=== PATIENT | female | born 1955 | race Caucasian/White ===

== ENCOUNTER 2018-05-25 17:27 | Inpatient (IN) | payer MEDICARE, MEDICAID ==
[2018-05-25] MEDS ORDERED: Sodium Chloride 0.9% 1,000 ML IV ONE (17:35)
[2018-05-25] MEDS ORDERED: Haloperidol Lactate 5 mg/mL 1mL Vial ONE (17:55)
[2018-05-25 17:59] LABS: % BASOPHILS 0.1 % (0.0-2.0); % EOSINOPHILS 0.3 % (0.0-5.0); % LYMPHOCYTES 13.8 % (20.0-50.0); % MONOCYTES 11.4 % (2.0-10.0); % NEUTROPHILS 74.4 % (40.0-80.0); HEMATOCRIT 41.1 % (41.0-60); HEMOGLOBIN 13.6 gm/dL (12-16); LYMPHOCYTE ABSOLUTE 1.2 Th/cmm (1.5-3.0); MEAN CELL VOLUME 88.1 fl (81-100); MEAN CORPUSCULAR HEMOGLOBIN 29.1 pg (27.0-31.0); MEAN CORPUSCULAR HGB CONC 33.1 pg (28.0-36.0); MEAN PLATELET VOLUME 8.2 fl; NEUTROPHILE ABSOLUTE 6.4 Th/cmm (1.8-8.0); PLATELET COUNT 230 Th/cmm (150-400); RED BLOOD COUNT 4.66 Mil/cmm (3.80-5.10); RED CELL DISTRIBUTION WIDTH 12.9 % (11.5-20.0); WHITE BLOOD COUNT 8.6 Th/cmm (4.8-10.8)
[2018-05-25 18:08] LABS: INR 0.98 (0.5-1.4); PROTHROMBIN TIME (TEST) 10.2 SECONDS (9.5-11.5)
[2018-05-25 18:12] LABS: ALB/GLOB RATIO 1.2 (1.0-1.8); ALBUMIN 4.2 gm/dL (3.7-5.3); ALKALINE PHOSPHATASE 122 U/L (34-104); AMYLASE SERUM 26 U/L (29-103); ANION GAP 12.9 (7.0-16.0); BILIRUBIN,TOTAL 0.4 mg/dL (0.3-1.0); BUN - UREA NITROGEN 17 mg/dL (7-25); CALCIUM SERUM 9.6 mg/dL (8.6-10.3); CHLORIDE 100 mEq/L (98-107); CREATININE - SERUM 0.9 mg/dL (0.6-1.2); CREATININE KINASE 52 U/L (30-223); GFR AFRICAN-AMERICAN > 60.0 ml/min (>90); GFR NON AFRICAN-AMERICAN > 60.0 ml/min; GLUCOSE 123 mg/dL (70-105); LIPASE 147 U/L (11-82); POTASSIUM SERUM 3.9 mEq/L (3.5-5.1); SGOT 20 U/L (13-39); SGPT/ALT 9 U/L (7-52); SODIUM SERUM 135 mEq/L (136-145); TOTAL PROTEIN,SERUM 7.8 gm/dL (6.0-8.3)
[2018-05-25 18:13] LABS: TROP I 0.02 ng/mL (0.01-0.05)
[2018-05-25 18:24] LABS: URINE SOURCE MIDSTREAM
[2018-05-25 18:25] LABS: URINE BILIRUBIN NEGATIVE (NEGATIVE); URINE BLOOD NEGATIVE (NEGATIVE); URINE GLUCOSE (UA) NEGATIVE (NEGATIVE); URINE KETONE NEGATIVE (NEGATIVE); URINE LEUKOCYTE ESTERASE NEGATIVE (NEGATIVE); URINE NITRATE NEGATIVE (NEGATIVE); URINE PROTEIN NEGATIVE (NEGATIVE); URINE UROBILINOGEN 0.2 E.U./dL (0.2 - 1.0)
--- NOTE | 2018-05-25 18:38 | ED Physician Chart ---
ED Chief Complaint/HPI - Patient Information Allergies:: Allergies Allergy/AdvReac Type Severity Reaction Status Date / Time No Known Allergies Allergy Verified 05/25/18 17:31 Vitals:: Vital Signs - 8 hr 05/25/18 17:32 Temp 101.7 F HR 80 RR 16 BP 140/76 O2 Sat % 100 ED Labs/Radiology/EKG Results - Lab Results Results: Laboratory Tests 05/25/18 05/25/18 05/25/18 17:45 17:45 17:45 WBC 8.6 RBC 4.66 Hgb 13.6 Hct 41.1 MCV 88.1 MCH 29.1 MCHC Differential 33.1 RDW 12.9 Plt Count 230 MPV 8.2 Neutrophils % 74.4 Lymphocytes % 13.8 L Monocytes % 11.4 H Eosinophils % 0.3 Basophils % 0.1 Sodium 135 L Potassium 3.9 Chloride 100 Carbon Dioxide 26.0 Anion Gap 12.9 BUN 17 Creatinine 0.9 Est GFR ( Amer) > 60.0 Est GFR (Non-Af Amer) > 60.0 BUN/Creatinine Ratio 18.9 Glucose 123 H Whole Bld Lactic Acid 0.99 Calcium 9.6 Total Bilirubin 0.4 AST 20 ALT 9 Alkaline Phosphatase 122 H Creatine Kinase 52 Total Protein 7.8 Albumin 4.2 Globulin 3.6 Albumin/Globulin Ratio 1.2 Amylase 26 L Lipase 147 H - EKG Interpretations EKG Time:: 17:45 Rate & Rhythm: 82; NSR Comments:: LVH; non-specific st-t changes ED Septic Shock - <6hrs of presentation: Vital Signs: Vital Signs - 8 hr 05/25/18 17:32 Temp 101.7 F HR 80 RR 16 BP 140/76 O2 Sat % 100
[2018-05-25 18:40] LABS: URINE CLARITY CLEAR (CLEAR); URINE COLOR YELLOW; URINE MICROSCOPIC INDICATED? YES
[2018-05-25 18:43] LABS: URINE BACTERIA FEW /hpf (NONE SEEN); URINE EPITHELIAL CELLS FEW /lpf (FEW); URINE RBC 0-2 /hpf (0-5)
[2018-05-25] MEDS ORDERED: cefTRIAXone 1 GM in Sodium Chloride 0.9% 50 ML IV ONE (19:11)
[2018-05-25] MEDS ORDERED: Acetaminophen 500 MG TAB ONE (19:24)
[2018-05-26] MEDS: D5-0.45NS 1,000 ML IV SCH (00:38)
[2018-05-26] MEDS ORDERED: Levofloxacin 500mg/100mL 500 MG/100 ML BAG IV ONE (00:45)
[2018-05-26 06:46] LABS: % BASOPHILS 0.2 % (0.0-2.0); % EOSINOPHILS 0.4 % (0.0-5.0); % LYMPHOCYTES 20.2 % (20.0-50.0); % MONOCYTES 14.7 % (2.0-10.0); % NEUTROPHILS 64.5 % (40.0-80.0); HEMATOCRIT 36.9 % (41.0-60); HEMOGLOBIN 12.4 gm/dL (12-16); LYMPHOCYTE ABSOLUTE 1.3 Th/cmm (1.5-3.0); MEAN CELL VOLUME 87.8 fl (81-100); MEAN CORPUSCULAR HEMOGLOBIN 29.6 pg (27.0-31.0); MEAN CORPUSCULAR HGB CONC 33.7 pg (28.0-36.0); MEAN PLATELET VOLUME 8.2 fl; NEUTROPHILE ABSOLUTE 4.2 Th/cmm (1.8-8.0); PLATELET COUNT 204 Th/cmm (150-400); RED CELL DISTRIBUTION WIDTH 13.3 % (11.5-20.0)
[2018-05-26 06:52] LABS: WHITE BLOOD COUNT 6.5 Th/cmm (4.8-10.8)
[2018-05-26 07:01] LABS: ALB/GLOB RATIO 1.3 (1.0-1.8); ALBUMIN 3.5 gm/dL (3.7-5.3); ALKALINE PHOSPHATASE 93 U/L (34-104); ANION GAP 10.8 (7.0-16.0); BILIRUBIN,TOTAL 0.3 mg/dL (0.3-1.0); BUN - UREA NITROGEN 15 mg/dL (7-25); CARBON DIOXIDE 27.1 mEq/L (21.0-31.0); CHLORIDE 106 mEq/L (98-107); CHOLESTEROL 145 mg/dL (<200); CREATININE - SERUM 0.8 mg/dL (0.6-1.2); GFR AFRICAN-AMERICAN > 60.0 ml/min (>90); GFR NON AFRICAN-AMERICAN > 60.0 ml/min; GLUCOSE 88 mg/dL (70-105); HDL -HIGH DENSITY LIPOPROTEIN 48 mg/dL (23-92); POTASSIUM SERUM 3.9 mEq/L (3.5-5.1); SGOT 19 U/L (13-39); SGPT/ALT 17 U/L (7-52); SODIUM SERUM 140 mEq/L (136-145); TOTAL PROTEIN,SERUM 6.3 gm/dL (6.0-8.3); TRIGLYCERIDES 69 mg/dL (<150)
--- NOTE | 2018-05-26 08:33 | Diagnostic Imaging Report ---
Portable chest x-ray HISTORY: Pain There is a very poor inspiration. Heart size difficult to assess with portable technique and the poor inspiration. No focal pulmonary processes. No hilar or mediastinal abnormalities. Degenerative changes noted about the right shoulder along with evidence of calcific tendinitis. IMPRESSION: 1. Poor inspiration 2. No acute focal pulmonary processes
--- NOTE | 2018-05-26 11:40 | ER Physician Documentation ---
DATE OF SERVICE: 05/25/2018 HISTORY OF PRESENT ILLNESS: This is a 62-year-old patient brought in by [facility] because of poor oral intake, failure to thrive for the past 3 days. PAST MEDICAL HISTORY: Per nurses' notes. MEDICATIONS: Per nurse's notes. ALLERGIES: Per nurse's notes. REVIEW OF SYSTEMS: Otherwise noncontributory. PHYSICAL EXAMINATION: GENERAL: The patient is in no acute distress, is alert and active. VITAL SIGNS: Afebrile. Vital signs are stable. HEENT: Unremarkable. NECK: Supple, no meningeal signs. CARDIOVASCULAR: Regular rate and rhythm. LUNGS: Clear. ABDOMEN: Soft, nontender, normoactive bowel sounds. No pulsatile masses. EXTREMITIES: No edema, clubbing or cyanosis. NEUROLOGIC: Showed No focal signs. SKIN: Shows poor turgor with dry mucous membranes. EMERGENCY DEPARTMENT COURSE: The patient received IV fluids and labs revealed low sodium of 135. The urinalysis showed some white cells and bacteria. HOSPITAL COURSE: The patient received Rocephin and it was decided the patient should be admitted. The patient has been admitted. DIAGNOSES: Dehydration, poor oral intake, failure to thrive, urinary tract infection, sepsis. She was admitted under Dr. Saunders. JOB# [id number]
[2018-05-26 17:42] LABS: INF A SCREEN NEG FOR INF A; INF B SCREEN NEG FOR INF B
[2018-05-26 19:54] VITALS: BP 123/71
--- NOTE | 2018-05-26 22:20 | Consultation ---
DATE OF CONSULTATION: 05/26/2018 REQUESTING PHYSICIAN: Dr. Saunders. REASON FOR CONSULTATION: Failure to thrive and poor oral intake. Thank you for asking me to see this patient in consultation. HISTORY OF PRESENT ILLNESS: This is a 62-year-old female with mental retardation per nursing report, who presents to the hospital with fevers and poor oral intake. Information is lacking based on the patient's history as well as lack of any chart review available. The patient was apparently not eating very well from the past few days and also was having a fever as high as 100. She was started on antibiotics and she has been here in the hospital. She had a normal urinalysis, but does not confirm. She does not complain of any dysphagia or any vomiting and no blood in her stool. Currently, the patient is eating comfortably with nursing assistance. PAST MEDICAL HISTORY: Per nursing report. MEDICATIONS: Have been reviewed. SOCIAL HISTORY: Denies any tobacco, alcohol, or drugs. REVIEW OF SYSTEMS: Positive for headaches. All other 12-point systems are negative. PHYSICAL EXAMINATION: VITAL SIGNS: Temperature of 101.4, pulse of 86, blood pressure 132/54, respiratory rate of 20, and satting 94% on room air. GENERAL: She is in no acute distress. HEENT: Normocephalic, atraumatic. PERRL positive. LUNGS: Clear bilaterally. No wheezes, rales, or rhonchi. HEART: Regular rate and rhythm, normal S1, S2. ABDOMEN: Soft, nontender, bowel sounds are positive. EXTREMITIES: Show no lower extremity edema. PSYCHOLOGICAL: Alert and oriented x3. NEUROLOGIC: Grossly intact. LABORATORY DATA: Hemoglobin of 13.6 and platelet count of 230,000. INR 0.98. Sodium was 135 and potassium is 3.9. Amylase 26 and lipase of 147. ASSESSMENT AND PLAN: This is a 62-year-old female with history of mental retardation, who presents with fevers and poor p.o. intake and failure to thrive. 1. Poor p.o. intake. 2. Failure to thrive. 3. Systemic inflammatory response syndrome SIRS. 4. Generalized weakness. I would recommend a full sepsis workup in this patient with blood cultures, urine cultures, and look for underlying source of her fever, thus far only imaging that she has had is a chest x-ray, which showed no acute pulmonary process. PLAN: 1. Recommend calorie count. 2. Monitor for any oropharyngeal dysphagia. 3. We will consider PEG tube placement if the patient is having any difficulties in swallow or does not meet her caloric needs after underlying acute diagnosis has been treated. Thank you for allowing me to participate in this patient's care. Further recommendations to follow. JOB# [id number]
--- NOTE | 2018-05-26 22:34 | History & Physical ---
ADMIT DATE: 05/26/2018 CHIEF COMPLAINT: Poor oral intake. HISTORY OF PRESENT ILLNESS: This is a 62-year-old female who is a board and care resident, admitted to the Med-Surg unit due to 3-day history of poor oral intake. No reports of any fevers at the long term. For further management, the patient is now admitted. PAST MEDICAL HISTORY: MR and dementia. SURGICAL HISTORY: Unknown. ALLERGIES: No known drug allergies. HOME MEDICATIONS: Please see medication list. SOCIAL HISTORY: The patient is a board and care resident. REVIEW OF SYSTEMS: GENERAL: Denies any fevers or chills. CARDIOVASCULAR: Denies chest pain. RESPIRATORY: Denies shortness of breath. GASTROINTESTINAL: Denies nausea, vomiting, abdominal pain. GENITOURINARY: Denies increased frequency. NEUROLOGIC: Denies headache, seizure or syncope. All systems are reviewed and negative. PHYSICAL EXAMINATION: GENERAL: The patient is well developed, well nourished, no apparent distress. VITAL SIGNS: Temperature 101.4, heart rate 86, blood pressure 132/54, respirations 19, O2 93%. HEENT: Head; normocephalic, atraumatic. NECK: Supple. No mass. LUNGS: Clear bilaterally. ABDOMEN: Soft, nontender. LABORATORY DATA: WBC 6.5, H and H 12.4 and 36.9, platelet of 204. Sodium ____, potassium 3.9, chloride 106, BUN 15, creatinine 0.8. The patient was swabbed for Influenza A and B negative. ASSESSMENT: Acute febrile illness, poor oral intake, failure to thrive, acute dehydration, mild mitral regurgitation, ____. PLAN: The patient to be admitted to the Med/Surg unit. We will give the patient, empiric IV antibiotics, Levaquin 250 mg IV q.24. Monitor the patient. We will do a calorie count. We will get Infectious Disease on the case as well as GI. We will await for the patient's blood culture results. We will also get a chest x-ray. We will continue to monitor this patient. JOB# [id number]
[2018-05-27] MEDS: Levofloxacin 250mg/50mL 250 MG/50 ML BAG IV SCH (00:34)
[2018-05-27 06:30] LABS: % BASOPHILS 0.1 % (0.0-2.0); % EOSINOPHILS 0.6 % (0.0-5.0); % MONOCYTES 13.3 % (2.0-10.0); HEMATOCRIT 36.6 % (41.0-60); HEMOGLOBIN 12.2 gm/dL (12-16); LYMPHOCYTE ABSOLUTE 1.2 Th/cmm (1.5-3.0); MEAN CELL VOLUME 86.9 fl (81-100); MEAN CORPUSCULAR HGB CONC 33.4 pg (28.0-36.0); MONOCYTE ABSOLUTE 0.7 Th/cmm (0.3-1.0); NEUTROPHILE ABSOLUTE 3.5 Th/cmm (1.8-8.0); PLATELET COUNT 216 Th/cmm (150-400); RED BLOOD COUNT 4.21 Mil/cmm (3.80-5.10); RED CELL DISTRIBUTION WIDTH 12.8 % (11.5-20.0); WHITE BLOOD COUNT 5.4 Th/cmm (4.8-10.8)
[2018-05-27 06:43] LABS: BUN - UREA NITROGEN 13 mg/dL (7-25); CARBON DIOXIDE 25.7 mEq/L (21.0-31.0); CHLORIDE 105 mEq/L (98-107); CREATININE - SERUM 0.6 mg/dL (0.6-1.2); GFR AFRICAN-AMERICAN > 60.0 ml/min (>90); GFR NON AFRICAN-AMERICAN > 60.0 ml/min; GLUCOSE 95 mg/dL (70-105); POTASSIUM SERUM 3.7 mEq/L (3.5-5.1); SODIUM SERUM 140 mEq/L (136-145)
--- NOTE | 2018-05-27 07:51 | GI Progress Note ---
Subjective - Review of Systems Subjective: DENIES ABD PAIN EATING 100% OF HER FOOD PER PT AND STAFF Objective - Results Result Diagrams: 05/27/18 05:05 05/27/18 05:05 Recent Labs: Laboratory Last Values WBC 5.4 Th/cmm (4.8-10.8) 05/27/18 05:05 RBC 4.21 Mil/cmm (3.80-5.10) 05/27/18 05:05 Hgb 12.2 gm/dL (12-16) 05/27/18 05:05 Hct 36.6 % (41.0-60) L 05/27/18 05:05 MCV 86.9 fl (81-100) 05/27/18 05:05 MCH 29.0 pg (27.0-31.0) 05/27/18 05:05 MCHC Differential 33.4 pg (28.0-36.0) 05/27/18 05:05 RDW 12.8 % (11.5-20.0) 05/27/18 05:05 Plt Count 216 Th/cmm (150-400) 05/27/18 05:05 MPV 8.0 fl 05/27/18 05:05 Neutrophils % 63.0 % (40.0-80.0) 05/27/18 05:05 Lymphocytes % 23.0 % (20.0-50.0) 05/27/18 05:05 Monocytes % 13.3 % (2.0-10.0) H 05/27/18 05:05 Eosinophils % 0.6 % (0.0-5.0) 05/27/18 05:05 Basophils % 0.1 % (0.0-2.0) 05/27/18 05:05 PT 10.2 SECONDS (9.5-11.5) 05/25/18 17:45 INR 0.98 (0.5-1.4) 05/25/18 17:45 PTT (Actin FS) 26.8 SECONDS (26.0-38.0) 05/25/18 17:45 Sodium 140 mEq/L (136-145) 05/27/18 05:05 Potassium 3.7 mEq/L (3.5-5.1) 05/27/18 05:05 Chloride 105 mEq/L (98-107) 05/27/18 05:05 Carbon Dioxide 25.7 mEq/L (21.0-31.0) 05/27/18 05:05 Anion Gap 13.0 (7.0-16.0) 05/27/18 05:05 BUN 13 mg/dL (7-25) 05/27/18 05:05 Creatinine 0.6 mg/dL (0.6-1.2) 05/27/18 05:05 Est GFR ( Amer) > 60.0 ml/min (>90) 05/27/18 05:05 Est GFR (Non-Af Amer) > 60.0 ml/min 05/27/18 05:05 BUN/Creatinine Ratio 21.7 05/27/18 05:05 Glucose 95 mg/dL (70-105) 05/27/18 05:05 Whole Bld Lactic Acid 0.99 mmol/L (0.60-1.99) 05/25/18 17:45 Calcium 9.0 mg/dL (8.6-10.3) 05/27/18 05:05 Total Bilirubin 0.3 mg/dL (0.3-1.0) 05/26/18 06:00 AST 19 U/L (13-39) 05/26/18 06:00 ALT 17 U/L (7-52) 05/26/18 06:00 Alkaline Phosphatase 93 U/L (34-104) 05/26/18 06:00 Creatine Kinase 52 U/L (30-223) 05/25/18 17:45 Troponin I 0.02 ng/mL (0.01-0.05) 05/25/18 17:45 Total Protein 6.3 gm/dL (6.0-8.3) 05/26/18 06:00 Albumin 3.5 gm/dL (3.7-5.3) L 05/26/18 06:00 Globulin 2.8 gm/dL 05/26/18 06:00 Albumin/Globulin Ratio 1.3 (1.0-1.8) 05/26/18 06:00 Triglycerides 69 mg/dL (<150) 05/26/18 06:00 Cholesterol 145 mg/dL (<200) 05/26/18 06:00 LDL Cholesterol Direct 79 mg/dL (75-193) 05/26/18 06:00 HDL Cholesterol 48 mg/dL (23-92) 05/26/18 06:00 Amylase 26 U/L (29-103) L 05/25/18 17:45 Lipase 147 U/L (11-82) H 05/25/18 17:45 Urine Source MIDSTREAM 05/25/18 18:10 Urine Color YELLOW 05/25/18 18:10 Urine Clarity CLEAR (CLEAR) 05/25/18 18:10 Urine pH 6.0 (4.6 - 8.0) 05/25/18 18:10 Ur Specific [place] 1.020 (1.005-1.030) 05/25/18 18:10 Urine Protein NEGATIVE mg/dL (NEGATIVE) 05/25/18 18:10 Urine Glucose (UA) NEGATIVE mg/dL (NEGATIVE) 05/25/18 18:10 Urine Ketones NEGATIVE mg/dL (NEGATIVE) 05/25/18 18:10 Urine Blood NEGATIVE (NEGATIVE) 05/25/18 18:10 Urine Nitrate NEGATIVE (NEGATIVE) 05/25/18 18:10 Urine Bilirubin NEGATIVE (NEGATIVE) 05/25/18 18:10 Urine Urobilinogen 0.2 E.U./dL (0.2 - 1.0) 05/25/18 18:10 Ur Leukocyte Esterase NEGATIVE (NEGATIVE) 05/25/18 18:10 Urine RBC 0-2 /hpf (0-5) 05/25/18 18:10 Urine WBC 2-5 /hpf (0-5) 05/25/18 18:10 Ur Epithelial Cells FEW /lpf (FEW) 05/25/18 18:10 Urine Bacteria FEW /hpf (NONE SEEN) 05/25/18 18:10 Urine Mucus FEW /lpf (FEW) 05/25/18 18:10 Influenza A (Rapid) NEG FOR INF A 05/26/18 16:45 Influenza B (Rapid) NEG FOR INF B 05/26/18 16:45 - Physical Exam Vitals and I&O: Vital Signs Temp 97.0 F 05/27/18 07:47 Pulse 73 05/27/18 07:47 Resp 18 05/27/18 07:47 BP 129/64 05/27/18 07:47 Pulse Ox 98 05/27/18 07:47 Intake & Output 05/26/18 05/27/18 05/27/18 18:59 06:59 18:59 Intake Total 720 Balance 720 Weight (lbs) 58.967 kg 58.967 kg Intake: Oral 720 Other: # Voids 3 3 # Bowel Movements 0 Weight Source Bedscale Bedscale Active Medications: Current Medications Acetaminophen (Tylenol) 650 mg PO Q4HR PRN PRN Reason: Pain Or Fever above 101 Stop: 07/25/18 17:45 Aripiprazole (Abilify) 2.5 mg PO HS [facility]; Protocol Stop: 07/25/18 20:59 Last Admin: 05/26/18 20:38 Dose: 2.5 mg Benztropine Mesylate (Cogentin) 0.5 mg PO BID [facility] Stop: 07/26/18 08:59 Dextromethorphan/Quinidine (Nuedexta 20mg-10mg) 1 cap PO DAILY [facility] Stop: 07/26/18 08:59 Donepezil HCl (Aricept) 10 mg PO HS [facility] Stop: 07/26/18 20:59 Levofloxacin (Levaquin Pb) 250 mg in 50 mls @ 50 mls/hr IV Q24HR [facility]; Protocol Stop: 07/26/18 00:59 Last Admin: 05/27/18 00:34 Dose: 50 mls/hr Dextrose/Sodium Chloride (D5-0.45ns) 1,000 mls @ 75 mls/hr IV .[id number] [facility] Stop: 07/25/18 00:28 Last Admin: 05/26/18 00:38 Dose: 75 mls/hr Lorazepam (Ativan) 1 mg PO BID PRN; Protocol PRN Reason: Anxiety Stop: 07/25/18 17:44 Miscellaneous (Buspirone Hcl [Buspirone Hcl*]) 2 tab PO BID [facility] Stop: 07/26/18 08:59 Miscellaneous (Memantine Hcl [Memantine Hcl Er]) 28 mg PO DAILY [facility] Stop: 07/26/18 08:59 Miscellaneous (Sertraline Hcl [Zoloft]) 2 tab PO HS [facility] Stop: 07/25/18 20:59 - Procedures Procedures: Procedures Procedure Code Date APPLICATION LOWER LEG SPLINT 40360 01/16/05 APPLICATION OF SPLINT 93.54 01/16/05 EEG MONITORING/GIVING DRUGS 15084 01/02/98 ELECTROENCEPHALOGRAM 89.14 01/02/98 Assessment/Plan - Assessment Assessment: 62 YO FEMALE WITH FAILURE TO THRIVE SEEMS TO HAVE RESOLVED EATING 100% MEAL NO CLEAR NEED AT THIS TIME FOR PEG AND PT DECLINE 1.CONT CALORIE COUNT; IF LOW THEN AND PT NEEDS IT THEN CONSIDER PEG IN THE FUTURE 2.CONT SUPP CARE 3.DEFER OTHER MANAGEMENT ISSUES TO THE PRIMARY TEAM 4.WILL SEE NEEDED; CALL IF QUESTIONS
--- NOTE | 2018-05-27 08:32 | Diagnostic Imaging Report ---
Portable chest x-ray HISTORY: Fever Heart size difficult to assess with portable technique and a poor inspiration. No acute focal pulmonary processes. No hilar or mediastinal abnormalities. IMPRESSION: No acute abnormalities
[2018-05-27] MEDS: Dextromethorphan/Quinidine 20mg/10mg Cap PO SCH (09:09)
[2018-05-27] MEDS ORDERED: Vancomycin HCl 1.5 GM in Sodium Chloride 0.9% 500 ML IV ONE (13:15)
[2018-05-27] MEDS ORDERED: Probiotic Screen MC PRN (14:28)
--- NOTE | 2018-05-27 16:18 | Consultation ---
DATE OF CONSULTATION: 05/27/2018 INFECTIOUS DISEASE CONSULTATION REFERRING PHYSICIAN: Dr. Saunders. REASON FOR CONSULTATION: Bacteremia, sepsis. HISTORY OF PRESENT ILLNESS: The patient is a 62-year-old female with a past medical history of mental retardation, dementia, brought in from nursing facility for poor intake for last 3 days. There is no history of fever at nursing facility. On initial evaluation, the patient's temperature was 101.7 degrees Fahrenheit and WBC count was 8600. She had a tachycardia at one point of time in the ER, heart rate going up to 114 and sepsis workup was performed and blood culture one of the two sets grew gram-positive cocci. Vancomycin IV was started. Meanwhile, the patient was also diagnosed to have pneumonia. She was started on Levaquin. Blood culture grew gram-positive cocci in clusters in one of the two sets and vancomycin was started today. ID consult was called for further antibiotic management. PAST MEDICAL HISTORY: Includes mental retardation and dementia. Psychosis and aggressive behavior. PAST SURGICAL HISTORY: None known. ALLERGIES: NKDA. MEDICATIONS: As per medication reconciliation sheet. ANTIBIOTIC BEAR: The patient is on vancomycin and Levaquin. REVIEW OF SYSTEMS: GENERAL: The patient denies any fever or chills. HEENT: No diplopia, no photophobia, no sore throat. RESPIRATORY: No cough, no shortness of breath. CVS: No chest pain. No palpitation. GASTROINTESTINAL: No nausea, no vomiting, no diarrhea, no constipation. GENITOURINARY: No dysuria. NEUROLOGICAL: No headache, no dizziness, no focal weakness. IMMUNIZATION STATUS: Up-to-date. TRAVEL HISTORY: None. EXPOSURES TO ILL CONTACTS: None. LABORATORY DATA: WBC count is 5400, hemoglobin 12.2, hematocrit 33.6, platelets are 216,000, neutrophils 63%. INR is 0.98, sodium is 140, potassium 3.7, chloride 105, bicarbonate is 26, BUN is 13, creatinine 0.6, glucose is 95. Urinalysis negative, nitrite negative, leukoesterase. Influenza A and B screen is negative. Chest x-ray shows no active disease. Blood culture 1 of 2 sets growing gram-positive cocci in clusters. MRSA screen is negative. IMPRESSION: 1. Staph bacteremia or sepsis. The patient had a fever, resolved. 2. Suspect pneumonia. 3. Dementia. 4. Mental retardation. 5. Psychosis and aggressive behavior. RECOMMENDATIONS: We will continue vancomycin and Levaquin. Depending on the blood culture report, we will define further therapy. Thank you, Dr. Saunders for involving me in taking care of this patient. JOB# [id number]
--- NOTE | 2018-05-27 19:28 | Internal Medicine Prog Note ---
Internal Medicine Subjective - Subjective Service Date: 05/27/18 Patient seen and examined:: with staff, chart reviewed Patient is:: awake, verbal, talking, agitated, confused Patient Complaints of:: congestion, cough, SOB Per staff patient has:: no adverse event, no episodes of fall, poor oral intake , agitated, other (Failure to thrive) Internal Medicine Objective - Results Result Diagrams: 05/27/18 05:05 05/27/18 05:05 Recent Labs: Laboratory Last Values WBC 5.4 Th/cmm (4.8-10.8) 05/27/18 05:05 RBC 4.21 Mil/cmm (3.80-5.10) 05/27/18 05:05 Hgb 12.2 gm/dL (12-16) 05/27/18 05:05 Hct 36.6 % (41.0-60) L 05/27/18 05:05 MCV 86.9 fl (81-100) 05/27/18 05:05 MCH 29.0 pg (27.0-31.0) 05/27/18 05:05 MCHC Differential 33.4 pg (28.0-36.0) 05/27/18 05:05 RDW 12.8 % (11.5-20.0) 05/27/18 05:05 Plt Count 216 Th/cmm (150-400) 05/27/18 05:05 MPV 8.0 fl 05/27/18 05:05 Neutrophils % 63.0 % (40.0-80.0) 05/27/18 05:05 Lymphocytes % 23.0 % (20.0-50.0) 05/27/18 05:05 Monocytes % 13.3 % (2.0-10.0) H 05/27/18 05:05 Eosinophils % 0.6 % (0.0-5.0) 05/27/18 05:05 Basophils % 0.1 % (0.0-2.0) 05/27/18 05:05 PT 10.2 SECONDS (9.5-11.5) 05/25/18 17:45 INR 0.98 (0.5-1.4) 05/25/18 17:45 PTT (Actin FS) 26.8 SECONDS (26.0-38.0) 05/25/18 17:45 Sodium 140 mEq/L (136-145) 05/27/18 05:05 Potassium 3.7 mEq/L (3.5-5.1) 05/27/18 05:05 Chloride 105 mEq/L (98-107) 05/27/18 05:05 Carbon Dioxide 25.7 mEq/L (21.0-31.0) 05/27/18 05:05 Anion Gap 13.0 (7.0-16.0) 05/27/18 05:05 BUN 13 mg/dL (7-25) 05/27/18 05:05 Creatinine 0.6 mg/dL (0.6-1.2) 05/27/18 05:05 Est GFR ( Amer) > 60.0 ml/min (>90) 05/27/18 05:05 Est GFR (Non-Af Amer) > 60.0 ml/min 05/27/18 05:05 BUN/Creatinine Ratio 21.7 05/27/18 05:05 Glucose 95 mg/dL (70-105) 05/27/18 05:05 Whole Bld Lactic Acid 0.99 mmol/L (0.60-1.99) 05/25/18 17:45 Calcium 9.0 mg/dL (8.6-10.3) 05/27/18 05:05 Total Bilirubin 0.3 mg/dL (0.3-1.0) 05/26/18 06:00 AST 19 U/L (13-39) 05/26/18 06:00 ALT 17 U/L (7-52) 05/26/18 06:00 Alkaline Phosphatase 93 U/L (34-104) 05/26/18 06:00 Creatine Kinase 52 U/L (30-223) 05/25/18 17:45 Troponin I 0.02 ng/mL (0.01-0.05) 05/25/18 17:45 Total Protein 6.3 gm/dL (6.0-8.3) 05/26/18 06:00 Albumin 3.5 gm/dL (3.7-5.3) L 05/26/18 06:00 Globulin 2.8 gm/dL 05/26/18 06:00 Albumin/Globulin Ratio 1.3 (1.0-1.8) 05/26/18 06:00 Triglycerides 69 mg/dL (<150) 05/26/18 06:00 Cholesterol 145 mg/dL (<200) 05/26/18 06:00 LDL Cholesterol Direct 79 mg/dL (75-193) 05/26/18 06:00 HDL Cholesterol 48 mg/dL (23-92) 05/26/18 06:00 Amylase 26 U/L (29-103) L 05/25/18 17:45 Lipase 147 U/L (11-82) H 05/25/18 17:45 Urine Source MIDSTREAM 05/25/18 18:10 Urine Color YELLOW 05/25/18 18:10 Urine Clarity CLEAR (CLEAR) 05/25/18 18:10 Urine pH 6.0 (4.6 - 8.0) 05/25/18 18:10 Ur Specific [place] 1.020 (1.005-1.030) 05/25/18 18:10 Urine Protein NEGATIVE mg/dL (NEGATIVE) 05/25/18 18:10 Urine Glucose (UA) NEGATIVE mg/dL (NEGATIVE) 05/25/18 18:10 Urine Ketones NEGATIVE mg/dL (NEGATIVE) 05/25/18 18:10 Urine Blood NEGATIVE (NEGATIVE) 05/25/18 18:10 Urine Nitrate NEGATIVE (NEGATIVE) 05/25/18 18:10 Urine Bilirubin NEGATIVE (NEGATIVE) 05/25/18 18:10 Urine Urobilinogen 0.2 E.U./dL (0.2 - 1.0) 05/25/18 18:10 Ur Leukocyte Esterase NEGATIVE (NEGATIVE) 05/25/18 18:10 Urine RBC 0-2 /hpf (0-5) 05/25/18 18:10 Urine WBC 2-5 /hpf (0-5) 05/25/18 18:10 Ur Epithelial Cells FEW /lpf (FEW) 05/25/18 18:10 Urine Bacteria FEW /hpf (NONE SEEN) 05/25/18 18:10 Urine Mucus FEW /lpf (FEW) 05/25/18 18:10 Influenza A (Rapid) NEG FOR INF A 05/26/18 16:45 Influenza B (Rapid) NEG FOR INF B 05/26/18 16:45 - Physical Exam Vitals and I&O: Vital Signs Temp 97.5 F 05/27/18 16:00 Pulse 74 05/27/18 16:00 Resp 18 05/27/18 16:00 BP 141/86 05/27/18 16:00 Pulse Ox 97 05/27/18 16:00 Intake & Output 05/27/18 05/27/18 05/28/18 06:59 18:59 06:59 Intake Total 1050 Output Total 4 Balance 1046 Weight (lbs) 58.967 kg 58.967 kg Intake: Oral 1050 Output: Urine 4 Other: # Voids 3 # Bowel Movements 3 Stool Characteristics Soft Formed Weight Source Bedscale Bedscale Active Medications: Current Medications Acetaminophen (Tylenol) 650 mg PO Q4HR PRN PRN Reason: Pain Or Fever above 101 Stop: 07/25/18 17:45 Aripiprazole (Abilify) 2.5 mg PO HS [facility]; Protocol Stop: 07/25/18 20:59 Last Admin: 05/26/18 20:38 Dose: 2.5 mg Benztropine Mesylate (Cogentin) 0.5 mg PO BID [facility] Stop: 07/26/18 08:59 Last Admin: 05/27/18 18:09 Dose: 0.5 mg Buspirone HCl (Buspar) 30 mg PO BID [facility] Stop: 07/26/18 08:59 Dextromethorphan/Quinidine (Nuedexta 20mg-10mg) 1 cap PO DAILY [facility] Stop: 07/26/18 08:59 Last Admin: 05/27/18 09:09 Dose: 1 cap Donepezil HCl (Aricept) 10 mg PO [facility] Stop: 07/26/18 20:59 Levofloxacin (Levaquin Pb) 250 mg in 50 mls @ 50 mls/hr IV Q24HR [facility]; Protocol Stop: 07/26/18 00:59 Last Admin: 05/27/18 00:34 Dose: 50 mls/hr Dextrose/Sodium Chloride (D5-0.45ns) 1,000 mls @ 75 mls/hr IV .[id number] [facility] Stop: 07/25/18 00:28 Last Admin: 05/26/18 00:38 Dose: 75 mls/hr Vancomycin HCl 1 gm/ Sodium (Chloride) 250 mls @ 165 mls/hr IV Q12H [facility] Stop: 07/27/18 02:59 Lactobacillus Rhamnosus (Culturelle 15b) 1 each PO DAILY [facility] Stop: 07/27/18 08:59 Lorazepam (Ativan) 1 mg PO BID PRN; Protocol PRN Reason: Anxiety Stop: 07/25/18 17:44 Memantine (Namenda) 10 mg PO BID [facility] Stop: 07/26/18 08:59 Last Admin: 05/27/18 18:09 Dose: 10 mg Miscellaneous (Vancomycin Iv Per Pharmacy) 1 ea PRN PRN PRN Reason: PROTOCOL Stop: 07/26/18 10:31 Miscellaneous (Probiotic Screen) 1 ea PRN PRN PRN Reason: PROTOCOL Stop: 07/26/18 14:27 Sertraline HCl (Zoloft) 200 mg PO HS [facility] Stop: 07/25/18 20:59 General: weak, lethargic, congested, demented, other (Hx of Mental Retardation.) HEENT: NC/AT Neck: Supple, No JVD Lungs: CTAB, rales, ronchi Cardiovascular: RRR, Normal S1 Abdomen: soft, non-tender Extremities: clear Neurological: no change, disorganized, muscle weakness - Procedures Procedures: Procedures Procedure Code Date APPLICATION LOWER LEG SPLINT 46428 01/16/05 APPLICATION OF SPLINT 93.54 01/16/05 EEG MONITORING/GIVING DRUGS 15092 01/02/98 ELECTROENCEPHALOGRAM 89.14 01/02/98 Internal Medicine Assmt/Plan - Assessment Assessment: Poor oral intake Failure to thrive Systemic Inflammatory Response Syndrome Generalized weakness Mental Retardation Dementia Pneumonia Sepsis Psychosis Aggressive behavior - Plan Plan: Continuation of care continue antibiotics and present meds as directed Monitor diet GI followup and ID followup Monitor mental health status fall precaution continue present care management Nutritional Asmnt/Malnutr-PDOC - Dietary Evaluation Malnutrition Findings (Please click <Entered> for more info): Nutritional Asmnt/Malnutrition Start: 05/26/18 15: 45 Text: Status: Complete Freq: Protocol: Document 05/26/18 15:45 LCHENG (Rec: 05/26/18 15:49 [id number] [id number]) Nutritional Asmnt/Malnutrition Patient General Information Nutritional Screening High Risk Diagnosis FTT, dehydration Pertinent Medical Hx/Surgical Hx no H&P as of now Subjective Information Pt seen lying in bed at time of visit, awake and alert. Pt stated appetite is ok, no food preference. Current Diet Order/ Nutrition Support CCHO 45g, mech soft Pertinent Medications D5-0.45ns Pertinent Labs 05/26 reviewed Nutritional Hx/Data Height 1.52 m Height (Calculated Centimeters) 152.4 Current Weight (lbs) 58.967 kg Weight (Calculated Kilograms) 59.0 Weight (Calculated Grams) 45400.0 [place] Body Weight 100 Body Mass Index (BMI) 25.4 Weight Status Overweight GI Symptoms GI Symptoms None Last BM not indicated Difficult in: None Skin Integrity/Comment: intact Estimated Nutritional Goals BEE in Kcals: Using Current wt Calories/Kcals/Kg 23-27 Kcals Calculated 6925-0678 Protein: Using Current wt Protein g/k Protein Calculated 59 Fluid: ml 1357-1593ml (1ml/kcal) Nutritional Problem No current Nutrition Prob Problem N/A Malnutrition Alert Is there a minimum of two criteria No selected? Query Text:Check all the applicable criteria. A minimum of two criteria are recommended for diagnosis of either severe or non-severe malnutrition. Malnutrition Related to Morbid Obesity Malnutrition related to morbid obesity No Intervention/Recommendation Comments 1. Continue with [facility] [address] soft diet as ordered. If PO intake low < 50%, consider adding nutrtiion supplements. 2. Monitor PO intake, wt, labs and skin integrity 3. F/U as high risk in 2-3 days Expected Outcomes/Goals Expected Outcomes/Goals 1. PO intake to meet at least 75% of nutritional needs. 2. Wt stability, skin to remain intact, labs to approach WNL.
[2018-05-27] MEDS: D5-0.45NS 1,000 ML IV SCH (19:29)
[2018-05-28] MEDS: Levofloxacin 250mg/50mL 250 MG/50 ML BAG IV SCH (00:33)
[2018-05-28] MEDS: Lactobacillus Rhamnosus GG 15 Billion CFU CAP.SPRINK PO SCH (08:22)
[2018-05-28] MEDS: Dextromethorphan/Quinidine 20mg/10mg Cap PO SCH (08:22)
--- NOTE | 2018-05-28 09:17 | Infectious Disease Prog Note ---
Infectious Disease Subjective - Review of Systems Service Date: 05/28/18 Subjective: There is no new change, no fever. Infectious Disease Objective - Results Result Diagrams: 05/27/18 05:05 05/27/18 05:05 Recent Labs: Laboratory Last Values WBC 5.4 Th/cmm (4.8-10.8) 05/27/18 05:05 RBC 4.21 Mil/cmm (3.80-5.10) 05/27/18 05:05 Hgb 12.2 gm/dL (12-16) 05/27/18 05:05 Hct 36.6 % (41.0-60) L 05/27/18 05:05 MCV 86.9 fl (81-100) 05/27/18 05:05 MCH 29.0 pg (27.0-31.0) 05/27/18 05:05 MCHC Differential 33.4 pg (28.0-36.0) 05/27/18 05:05 RDW 12.8 % (11.5-20.0) 05/27/18 05:05 Plt Count 216 Th/cmm (150-400) 05/27/18 05:05 MPV 8.0 fl 05/27/18 05:05 Neutrophils % 63.0 % (40.0-80.0) 05/27/18 05:05 Lymphocytes % 23.0 % (20.0-50.0) 05/27/18 05:05 Monocytes % 13.3 % (2.0-10.0) H 05/27/18 05:05 Eosinophils % 0.6 % (0.0-5.0) 05/27/18 05:05 Basophils % 0.1 % (0.0-2.0) 05/27/18 05:05 PT 10.2 SECONDS (9.5-11.5) 05/25/18 17:45 INR 0.98 (0.5-1.4) 05/25/18 17:45 PTT (Actin FS) 26.8 SECONDS (26.0-38.0) 05/25/18 17:45 Sodium 140 mEq/L (136-145) 05/27/18 05:05 Potassium 3.7 mEq/L (3.5-5.1) 05/27/18 05:05 Chloride 105 mEq/L (98-107) 05/27/18 05:05 Carbon Dioxide 25.7 mEq/L (21.0-31.0) 05/27/18 05:05 Anion Gap 13.0 (7.0-16.0) 05/27/18 05:05 BUN 13 mg/dL (7-25) 05/27/18 05:05 Creatinine 0.6 mg/dL (0.6-1.2) 05/27/18 05:05 Est GFR ( Amer) > 60.0 ml/min (>90) 05/27/18 05:05 Est GFR (Non-Af Amer) > 60.0 ml/min 05/27/18 05:05 BUN/Creatinine Ratio 21.7 05/27/18 05:05 Glucose 95 mg/dL (70-105) 05/27/18 05:05 Whole Bld Lactic Acid 0.99 mmol/L (0.60-1.99) 05/25/18 17:45 Calcium 9.0 mg/dL (8.6-10.3) 05/27/18 05:05 Total Bilirubin 0.3 mg/dL (0.3-1.0) 05/26/18 06:00 AST 19 U/L (13-39) 05/26/18 06:00 ALT 17 U/L (7-52) 05/26/18 06:00 Alkaline Phosphatase 93 U/L (34-104) 05/26/18 06:00 Creatine Kinase 52 U/L (30-223) 05/25/18 17:45 Troponin I 0.02 ng/mL (0.01-0.05) 05/25/18 17:45 Total Protein 6.3 gm/dL (6.0-8.3) 05/26/18 06:00 Albumin 3.5 gm/dL (3.7-5.3) L 05/26/18 06:00 Globulin 2.8 gm/dL 05/26/18 06:00 Albumin/Globulin Ratio 1.3 (1.0-1.8) 05/26/18 06:00 Triglycerides 69 mg/dL (<150) 05/26/18 06:00 Cholesterol 145 mg/dL (<200) 05/26/18 06:00 LDL Cholesterol Direct 79 mg/dL (75-193) 05/26/18 06:00 HDL Cholesterol 48 mg/dL (23-92) 05/26/18 06:00 Amylase 26 U/L (29-103) L 05/25/18 17:45 Lipase 147 U/L (11-82) H 05/25/18 17:45 Urine Source MIDSTREAM 05/25/18 18:10 Urine Color YELLOW 05/25/18 18:10 Urine Clarity CLEAR (CLEAR) 05/25/18 18:10 Urine pH 6.0 (4.6 - 8.0) 05/25/18 18:10 Ur Specific [place] 1.020 (1.005-1.030) 05/25/18 18:10 Urine Protein NEGATIVE mg/dL (NEGATIVE) 05/25/18 18:10 Urine Glucose (UA) NEGATIVE mg/dL (NEGATIVE) 05/25/18 18:10 Urine Ketones NEGATIVE mg/dL (NEGATIVE) 05/25/18 18:10 Urine Blood NEGATIVE (NEGATIVE) 05/25/18 18:10 Urine Nitrate NEGATIVE (NEGATIVE) 05/25/18 18:10 Urine Bilirubin NEGATIVE (NEGATIVE) 05/25/18 18:10 Urine Urobilinogen 0.2 E.U./dL (0.2 - 1.0) 05/25/18 18:10 Ur Leukocyte Esterase NEGATIVE (NEGATIVE) 05/25/18 18:10 Urine RBC 0-2 /hpf (0-5) 05/25/18 18:10 Urine WBC 2-5 /hpf (0-5) 05/25/18 18:10 Ur Epithelial Cells FEW /lpf (FEW) 05/25/18 18:10 Urine Bacteria FEW /hpf (NONE SEEN) 05/25/18 18:10 Urine Mucus FEW /lpf (FEW) 05/25/18 18:10 Influenza A (Rapid) NEG FOR INF A 05/26/18 16:45 Influenza B (Rapid) NEG FOR INF B 05/26/18 16:45 - Physical Exam Vitals and I&O: Vital Signs Temp 98.9 F 05/28/18 08:00 Pulse 60 05/28/18 08:51 Resp 16 05/28/18 08:51 BP 129/108 05/28/18 08:00 Pulse Ox 94 05/28/18 08:51 Intake & Output 05/27/18 05/28/18 05/28/18 18:59 06:59 18:59 Intake Total 1050 420 Output Total 4 1 Balance 1046 419 Weight (lbs) 58.967 kg 56.563 kg Intake: Intake, IV Amount 300 Levofloxacin 250mg/50mL 50 250 mg In 50 ml @ 50 mls/ hr IV Q24HR [facility] Rx#: [id number] Vancomycin HCl 1 gm In 250 Sodium Chloride 0.9% 250 ml @ 165 mls/hr IV Q12H [facility] Rx#:[id number] Oral 1050 120 Output: Urine 4 1 Other: # Voids 3 # Bowel Movements 3 1 Stool Characteristics Soft Soft Formed Formed Weight Source Bedscale Bedscale Active Medications: Current Medications Acetaminophen (Tylenol) 650 mg PO Q4HR PRN PRN Reason: Pain Or Fever above 101 Stop: 07/25/18 17:45 Last Admin: 05/27/18 21:51 Dose: 650 mg Aripiprazole (Abilify) 2.5 mg PO [facility]; Protocol Stop: 07/25/18 20:59 Last Admin: 05/27/18 21:52 Dose: 2.5 mg Benztropine Mesylate (Cogentin) 0.5 mg PO BID [facility] Stop: 07/26/18 08:59 Last Admin: 05/28/18 08:22 Dose: 0.5 mg Dextromethorphan/Quinidine (Nuedexta 20mg-10mg) 1 cap PO DAILY [facility] Stop: 07/26/18 08:59 Last Admin: 05/28/18 08:22 Dose: 1 cap Donepezil HCl (Aricept) 10 mg PO [facility] Stop: 07/26/18 20:59 Last Admin: 05/27/18 21:52 Dose: 10 mg Levofloxacin (Levaquin Pb) 250 mg in 50 mls @ 50 mls/hr IV Q24HR [facility]; Protocol Stop: 07/26/18 00:59 Last Infusion: 05/28/18 01:33 Dose: Infused Dextrose/Sodium Chloride (D5-0.45ns) 1,000 mls @ 75 mls/hr IV .[id number] [facility] Stop: 07/25/18 00:28 Last Admin: 05/27/18 19:29 Dose: 75 mls/hr Vancomycin HCl 1 gm/ Sodium (Chloride) 250 mls @ 165 mls/hr IV Q12H [facility] Stop: 07/27/18 02:59 Last Infusion: 05/28/18 04:15 Dose: Infused Lactobacillus Rhamnosus (Culturelle 15b) 1 each PO DAILY [facility] Stop: 07/27/18 08:59 Last Admin: 05/28/18 08:22 Dose: 1 each Lorazepam (Ativan) 1 mg PO BID [facility]; Protocol PRN Reason: Anxiety Stop: 07/25/18 17:44 Memantine (Namenda) 10 mg PO BID [facility] Stop: 07/26/18 08:59 Last Admin: 05/28/18 08:22 Dose: 10 mg Miscellaneous (Vancomycin Iv Per Pharmacy) 1 ea PRN PRN PRN Reason: PROTOCOL Stop: 07/26/18 10:31 Miscellaneous (Probiotic Screen) 1 ea PRN PRN PRN Reason: PROTOCOL Stop: 07/26/18 14:27 Miscellaneous (Misc Oral Tab) 3 tab PO BID [facility] Stop: 07/27/18 08:59 Sertraline HCl (Zoloft) 200 mg PO HS [facility] Stop: 07/26/18 21:59 Last Admin: 05/27/18 21:59 Dose: 200 mg General: no acute distress, well developed, well nourished HEENT: atraumatic, normocephalic, PERRLA, EOMI Neck: supple, no thyromegaly Cardiovascular: S1S2, regular Lungs: clear to auscultation bilaterally, clear to percussion Abdomen: soft, no tender, no distended Extremities: no cyanosis, no clubbing Neurological: awake, alert, oriented Skin: intact - Procedures Procedures: Procedures Procedure Code Date APPLICATION LOWER LEG SPLINT 56782 01/16/05 APPLICATION OF SPLINT 93.54 01/16/05 EEG MONITORING/GIVING DRUGS 34489 01/02/98 ELECTROENCEPHALOGRAM 89.14 01/02/98 Infectious Disease Assmt/Plan - Assessment Assessment: 1. Staph bacteremia. 2. ?pneumonia - Plan Plan: Continue vanco IV and levaquin. Depending on the blood culture will define final antibiotic therapy. Nutritional Asmnt/Malnutr-PDOC - Dietary Evaluation Malnutrition Findings (Please click <Entered> for more info): Nutritional Asmnt/Malnutrition Start: 05/26/18 15: 45 Text: Status: Complete Freq: Protocol: Document 05/26/18 15:45 JOSE (Rec: 05/26/18 15:49 [facility] [id number]) Nutritional Asmnt/Malnutrition Patient General Information Nutritional Screening High Risk Diagnosis FTT, dehydration Pertinent Medical Hx/Surgical Hx no H&P as of now Subjective Information Pt seen lying in bed at time of visit, awake and alert. Pt stated appetite is ok, no food preference. Current Diet Order/ Nutrition Support CCHO 45g, mech soft Pertinent Medications D5-0.45ns Pertinent Labs 05/26 reviewed Nutritional Hx/Data Height 1.52 m Height (Calculated Centimeters) 152.4 Current Weight (lbs) 58.967 kg Weight (Calculated Kilograms) 59.0 Weight (Calculated Grams) 30255.0 [place] Body Weight 100 Body Mass Index (BMI) 25.4 Weight Status Overweight GI Symptoms GI Symptoms None Last BM not indicated Difficult in: None Skin Integrity/Comment: intact Estimated Nutritional Goals BEE in Kcals: Using Current wt Calories/Kcals/Kg 23-27 Kcals Calculated 7565-0440 Protein: Using Current wt Protein g/k Protein Calculated 59 Fluid: ml 1357-1593ml (1ml/kcal) Nutritional Problem No current Nutrition Prob Problem N/A Malnutrition Alert Is there a minimum of two criteria No selected? Query Text:Check all the applicable criteria. A minimum of two criteria are recommended for diagnosis of either severe or non-severe malnutrition. Malnutrition Related to Morbid Obesity Malnutrition related to morbid obesity No Intervention/Recommendation Comments 1. Continue with CCHO 45gm mech soft diet as ordered. If PO intake low < 50%, consider adding nutrtiion supplements. 2. Monitor PO intake, wt, labs and skin integrity 3. F/U as high risk in 2-3 days Expected Outcomes/Goals Expected Outcomes/Goals 1. PO intake to meet at least 75% of nutritional needs. 2. Wt stability, skin to remain intact, labs to approach WNL.
[2018-05-28] MEDS: BUSPIRONE 10 MG PO SCH ×2 (09:21→16:01)
[2018-05-28] MEDS: D5-0.45NS 1,000 ML IV SCH (12:53)
--- NOTE | 2018-05-28 18:11 | Progress Notes ---
DATE: 05/28/2018 SUBJECTIVE: The patient was seen in her room. The patient is a poor historian due to medical condition. Current appetite is fair. Otherwise, the patient appears to be in no acute distress. OBJECTIVE: VITAL SIGNS: Temperature 98.9, heart rate 68, blood pressure 129/78, respirations of 18, and 100% on room air. HEENT: Head is atraumatic and normocephalic. Eyes: Bilateral conjunctivae are clear. Bilateral pupils equal, round, reactive. NECK: Supple. No JVD. CARDIOVASCULAR: S1 and S2, without murmur. PULMONARY: Clear to auscultation. GASTROINTESTINAL: Soft and nontender without guarding. Positive bowel sounds. MUSCULOSKELETAL: No clubbing. No cyanosis noted. ASSESSMENT: 1. Failure to thrive. 2. Mental retardation. PLAN: We will keep the patient inpatient Psychiatric unit and follow with the psychiatrist. Monitor the patient's condition and behavior. Treatment plans were discussed with the patient's nurse. Treatment plans were discussed with Dr. Saunders. JOB# [id number]
[2018-05-29] MEDS: Levofloxacin 250mg/50mL 250 MG/50 ML BAG IV SCH (01:16)
[2018-05-29] MEDS: D5-0.45NS 1,000 ML IV SCH ×3 (05:19→22:27)
[2018-05-29] MEDS: Lactobacillus Rhamnosus GG 15 Billion CFU CAP.SPRINK PO SCH (08:13)
[2018-05-29] MEDS: Dextromethorphan/Quinidine 20mg/10mg Cap PO SCH (08:13)
[2018-05-29] MEDS: BUSPIRONE 10 MG PO SCH ×2 (08:14→16:17)
--- NOTE | 2018-05-29 12:49 | Internal Medicine Prog Note ---
Internal Medicine Subjective - Subjective Patient is:: awake, verbal, talking, confused, other (no fever) Patient Complaints of:: congestion, cough, SOB Per staff patient has:: no adverse event, no episodes of fall, poor oral intake , agitated, other (Failure to thrive) Internal Medicine Objective - Results Result Diagrams: 05/27/18 05:05 05/27/18 05:05 Recent Labs: Laboratory Last Values WBC 5.4 Th/cmm (4.8-10.8) 05/27/18 05:05 RBC 4.21 Mil/cmm (3.80-5.10) 05/27/18 05:05 Hgb 12.2 gm/dL (12-16) 05/27/18 05:05 Hct 36.6 % (41.0-60) L 05/27/18 05:05 MCV 86.9 fl (81-100) 05/27/18 05:05 MCH 29.0 pg (27.0-31.0) 05/27/18 05:05 MCHC Differential 33.4 pg (28.0-36.0) 05/27/18 05:05 RDW 12.8 % (11.5-20.0) 05/27/18 05:05 Plt Count 216 Th/cmm (150-400) 05/27/18 05:05 MPV 8.0 fl 05/27/18 05:05 Neutrophils % 63.0 % (40.0-80.0) 05/27/18 05:05 Lymphocytes % 23.0 % (20.0-50.0) 05/27/18 05:05 Monocytes % 13.3 % (2.0-10.0) H 05/27/18 05:05 Eosinophils % 0.6 % (0.0-5.0) 05/27/18 05:05 Basophils % 0.1 % (0.0-2.0) 05/27/18 05:05 PT 10.2 SECONDS (9.5-11.5) 05/25/18 17:45 INR 0.98 (0.5-1.4) 05/25/18 17:45 PTT (Actin FS) 26.8 SECONDS (26.0-38.0) 05/25/18 17:45 Sodium 140 mEq/L (136-145) 05/27/18 05:05 Potassium 3.7 mEq/L (3.5-5.1) 05/27/18 05:05 Chloride 105 mEq/L (98-107) 05/27/18 05:05 Carbon Dioxide 25.7 mEq/L (21.0-31.0) 05/27/18 05:05 Anion Gap 13.0 (7.0-16.0) 05/27/18 05:05 BUN 13 mg/dL (7-25) 05/27/18 05:05 Creatinine 0.6 mg/dL (0.6-1.2) 05/27/18 05:05 Est GFR ( Amer) > 60.0 ml/min (>90) 05/27/18 05:05 Est GFR (Non-Af Amer) > 60.0 ml/min 05/27/18 05:05 BUN/Creatinine Ratio 21.7 05/27/18 05:05 Glucose 95 mg/dL (70-105) 05/27/18 05:05 Whole Bld Lactic Acid 0.99 mmol/L (0.60-1.99) 05/25/18 17:45 Calcium 9.0 mg/dL (8.6-10.3) 05/27/18 05:05 Total Bilirubin 0.3 mg/dL (0.3-1.0) 05/26/18 06:00 AST 19 U/L (13-39) 05/26/18 06:00 ALT 17 U/L (7-52) 05/26/18 06:00 Alkaline Phosphatase 93 U/L (34-104) 05/26/18 06:00 Creatine Kinase 52 U/L (30-223) 05/25/18 17:45 Troponin I 0.02 ng/mL (0.01-0.05) 05/25/18 17:45 Total Protein 6.3 gm/dL (6.0-8.3) 05/26/18 06:00 Albumin 3.5 gm/dL (3.7-5.3) L 05/26/18 06:00 Globulin 2.8 gm/dL 05/26/18 06:00 Albumin/Globulin Ratio 1.3 (1.0-1.8) 05/26/18 06:00 Triglycerides 69 mg/dL (<150) 05/26/18 06:00 Cholesterol 145 mg/dL (<200) 05/26/18 06:00 LDL Cholesterol Direct 79 mg/dL (75-193) 05/26/18 06:00 HDL Cholesterol 48 mg/dL (23-92) 05/26/18 06:00 Amylase 26 U/L (29-103) L 05/25/18 17:45 Lipase 147 U/L (11-82) H 05/25/18 17:45 Urine Source MIDSTREAM 05/25/18 18:10 Urine Color YELLOW 05/25/18 18:10 Urine Clarity CLEAR (CLEAR) 05/25/18 18:10 Urine pH 6.0 (4.6 - 8.0) 05/25/18 18:10 Ur Specific [place] 1.020 (1.005-1.030) 05/25/18 18:10 Urine Protein NEGATIVE mg/dL (NEGATIVE) 05/25/18 18:10 Urine Glucose (UA) NEGATIVE mg/dL (NEGATIVE) 05/25/18 18:10 Urine Ketones NEGATIVE mg/dL (NEGATIVE) 05/25/18 18:10 Urine Blood NEGATIVE (NEGATIVE) 05/25/18 18:10 Urine Nitrate NEGATIVE (NEGATIVE) 05/25/18 18:10 Urine Bilirubin NEGATIVE (NEGATIVE) 05/25/18 18:10 Urine Urobilinogen 0.2 E.U./dL (0.2 - 1.0) 05/25/18 18:10 Ur Leukocyte Esterase NEGATIVE (NEGATIVE) 05/25/18 18:10 Urine RBC 0-2 /hpf (0-5) 05/25/18 18:10 Urine WBC 2-5 /hpf (0-5) 05/25/18 18:10 Ur Epithelial Cells FEW /lpf (FEW) 05/25/18 18:10 Urine Bacteria FEW /hpf (NONE SEEN) 05/25/18 18:10 Urine Mucus FEW /lpf (FEW) 05/25/18 18:10 Influenza A (Rapid) NEG FOR INF A 05/26/18 16:45 Influenza B (Rapid) NEG FOR INF B 05/26/18 16:45 - Physical Exam Vitals and I&O: Vital Signs Temp 98.2 F 05/29/18 12:00 Pulse 56 05/29/18 12:00 Resp 18 05/29/18 12:00 BP 148/53 05/29/18 12:00 Pulse Ox 97 03/03/19 12:00 Intake & Output 05/28/18 05/29/18 05/29/18 18:59 06:59 18:59 Intake Total 1250 1505 Balance 1250 1505 Weight (lbs) 56.245 kg Intake: Intake, IV Amount 1250 1305 D5-0.45NS 1,000 ml @ 75 1000 1005 mls/hr IV .[id number] [facility] Rx #:[id number] Levofloxacin 250mg/50mL 50 250 mg In 50 ml @ 50 mls/ hr IV Q24HR [facility] Rx#: [id number] Vancomycin HCl 1 gm In 250 250 Sodium Chloride 0.9% 250 ml @ 165 mls/hr IV Q12H [facility] Rx#:[id number] Oral 200 Other: # Voids 2 # Bowel Movements 2 Weight Source Bedscale Active Medications: Current Medications Acetaminophen (Tylenol) 650 mg PO Q4HR PRN PRN Reason: Pain Or Fever above 101 Stop: 07/25/18 17:45 Last Admin: 05/29/18 11:37 Dose: 650 mg Aripiprazole (Abilify) 2.5 mg PO HS [facility]; Protocol Stop: 07/25/18 20:59 Last Admin: 05/28/18 21:35 Dose: 2.5 mg Benztropine Mesylate (Cogentin) 0.5 mg PO BID [facility] Stop: 07/26/18 08:59 Last Admin: 05/29/18 08:13 Dose: 0.5 mg Dextromethorphan/Quinidine (Nuedexta 20mg-10mg) 1 cap PO DAILY [facility] Stop: 07/26/18 08:59 Last Admin: 05/29/18 08:13 Dose: 1 cap Donepezil HCl (Aricept) 10 mg PO HS [facility] Stop: 07/26/18 20:59 Last Admin: 05/28/18 21:35 Dose: 10 mg Levofloxacin (Levaquin Pb) 250 mg in 50 mls @ 50 mls/hr IV Q24HR [facility]; Protocol Stop: 07/26/18 00:59 Last Infusion: 05/29/18 02:50 Dose: Infused Dextrose/Sodium Chloride (D5-0.45ns) 1,000 mls @ 75 mls/hr IV .[id number] [facility] Stop: 07/25/18 00:28 Last Admin: 05/29/18 05:23 Dose: 75 mls/hr Vancomycin HCl 1 gm/ Sodium (Chloride) 250 mls @ 165 mls/hr IV Q12H [facility] Stop: 07/27/18 02:59 Last Infusion: 05/29/18 05:21 Dose: Infused Lactobacillus Rhamnosus (Culturelle 15b) 1 each PO DAILY [facility] Stop: 07/27/18 08:59 Last Admin: 05/29/18 08:13 Dose: 1 each Lorazepam (Ativan) 1 mg PO BID PRN; Protocol PRN Reason: Anxiety Stop: 07/25/18 17:44 Memantine (Namenda) 10 mg PO BID [facility] Stop: 07/26/18 08:59 Last Admin: 05/29/18 08:13 Dose: 10 mg Miscellaneous (Vancomycin Iv Per Pharmacy) 1 ea PRN PRN PRN Reason: PROTOCOL Stop: 07/26/18 10:31 Miscellaneous (Probiotic Screen) 1 [facility] PRN PRN PRN Reason: PROTOCOL Stop: 07/26/18 14:27 Miscellaneous (Misc Oral Tab) 3 tab PO BID [facility] Stop: 07/27/18 08:59 Last Admin: 05/29/18 08:14 Dose: 3 tab Sertraline HCl (Zoloft) 200 mg PO HS [facility] Stop: 07/26/18 21:59 Last Admin: 05/28/18 21:35 Dose: 200 mg General: weak, lethargic, congested, demented, other (Hx of Mental Retardation.) HEENT: NC/AT Neck: Supple, No JVD Lungs: CTAB, rales, ronchi Cardiovascular: RRR, Normal S1 Abdomen: soft, non-tender Extremities: clear Neurological: no change, disorganized, muscle weakness - Procedures Procedures: Procedures Procedure Code Date APPLICATION LOWER LEG SPLINT 23229 01/16/05 APPLICATION OF SPLINT 93.54 01/16/05 EEG MONITORING/GIVING DRUGS 58351 01/02/98 ELECTROENCEPHALOGRAM 89.14 01/02/98 Internal Medicine Assmt/Plan - Assessment Assessment: Poor oral intake Failure to thrive Systemic Inflammatory Response Syndrome Generalized weakness Mental Retardation Dementia Pneumonia Sepsis Psychosis Aggressive behavior - Plan Plan: Continuation of care continue antibiotics and present meds as directed Monitor diet GI followup and ID followup Monitor mental health status fall precaution continue present care management Nutritional Asmnt/Malnutr-PDOC - Dietary Evaluation Malnutrition Findings (Please click <Entered> for more info): Nutritional Asmnt/Malnutrition Start: 05/26/18 15: 45 Text: Status: Complete Freq: Protocol: Document 05/26/18 15:45 [email or web address] (Rec: 05/26/18 15:49 [email or web address]) Nutritional Asmnt/Malnutrition Patient General Information Nutritional Screening High Risk Diagnosis FTT, dehydration Pertinent Medical Hx/Surgical Hx no H&P as of now Subjective Information Pt seen lying in bed at time of visit, awake and alert. Pt stated appetite is ok, no food preference. Current Diet Order/ Nutrition Support CCHO 45g, mech soft Pertinent Medications D5-0.45ns Pertinent Labs 05/26 reviewed Nutritional Hx/Data Height 1.52 m Height (Calculated Centimeters) 152.4 Current Weight (lbs) 58.967 kg Weight (Calculated Kilograms) 59.0 Weight (Calculated Grams) 63646.0 [place] Body Weight 100 Body Mass Index (BMI) 25.4 Weight Status Overweight GI Symptoms GI Symptoms None Last BM not indicated Difficult in: None Skin Integrity/Comment: intact Estimated Nutritional Goals BEE in Kcals: Using Current wt Calories/Kcals/Kg 23-27 Kcals Calculated 2871-5504 Protein: Using Current wt Protein g/k Protein Calculated 59 Fluid: ml 1357-1593ml (1ml/kcal) Nutritional Problem No current Nutrition Prob Problem N/A Malnutrition Alert Is there a minimum of two criteria No selected? Query Text:Check all the applicable criteria. A minimum of two criteria are recommended for diagnosis of either severe or non-severe malnutrition. Malnutrition Related to Morbid Obesity Malnutrition related to morbid obesity No Intervention/Recommendation Comments 1. Continue with CCHO 45gm mech soft diet as ordered. If PO intake low < 50%, consider adding nutrtiion supplements. 2. Monitor PO intake, wt, labs and skin integrity 3. F/U as high risk in 2-3 days Expected Outcomes/Goals Expected Outcomes/Goals 1. PO intake to meet at least 75% of nutritional needs. 2. Wt stability, skin to remain intact, labs to approach WNL.
--- NOTE | 2018-05-29 17:16 | Infectious Disease Prog Note ---
Infectious Disease Subjective - Review of Systems Service Date: 05/29/18 Subjective: cc uti/? pn/ sepsis hpi- vanco d/c urine culture added ros no efrv o/e vs chest claer vesicular abd sft ext pilse 05/27/18 13:04 Wound Care Notes by Nelson Laws Hima Scale Evaluation Patient evaluated for a low Hima score of 13. Patient was awake, alert, oriented x 2, and received in a [place] bed. Patient is able to turn in bed. Skin is fair. Recommend encourage and assist patient as needed with repositioning every two hours with pillow support, and off-load heels and pressure areas with pillows for pressure re-distribution. Perform skin care and monitor skin integrity q shift. Use moisture barrier cream on moisture susceptible areas qid, and as needed for soiling. 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/18) RESTLESSNESS AND AGITATION (05/25/18) FEVER, UNSPECIFIED (05/25/18) ADULT FAILURE TO THRIVE (05/25/18) SIRS OF NON-INFECTIOUS ORIGIN W/O ACUTE ORGAN DYSFUNCTION (05/25/18) Current Medications Acetaminophen (Tylenol) 650 mg PO Q4HR PRN PRN Reason: Pain Or Fever above 101 Stop: 07/25/18 17:45 Last Admin: 05/29/18 11:37 Dose: 650 mg Aripiprazole (Abilify) 2.5 mg PO HS [facility]; Protocol Stop: 07/25/18 20:59 Last Admin: 05/28/18 21:35 Dose: 2.5 mg Benztropine Mesylate (Cogentin) 0.5 mg PO BID [facility] Stop: 07/26/18 08:59 Last Admin: 05/29/18 16:16 Dose: 0.5 mg Dextromethorphan/Quinidine (Nuedexta 20mg-10mg) 1 cap PO DAILY [facility] Stop: 07/26/18 08:59 Last Admin: 05/29/18 08:13 Dose: 1 cap Donepezil HCl (Aricept) 10 mg PO HS [facility] Stop: 07/26/18 20:59 Last Admin: 05/28/18 21:35 Dose: 10 mg Levofloxacin (Levaquin Pb) 250 mg in 50 mls @ 50 mls/hr IV Q24HR [facility]; Protocol Stop: 07/26/18 00:59 Last Infusion: 05/29/18 02:50 Dose: Infused Dextrose/Sodium Chloride (D5-0.45ns) 1,000 mls @ 75 mls/hr IV .[id number] [facility] Stop: 07/25/18 00:28 Last Admin: 05/29/18 05:23 Dose: 75 mls/hr Lactobacillus Rhamnosus (Culturelle 15b) 1 each PO DAILY [facility] Stop: 07/27/18 08:59 Last Admin: 05/29/18 08:13 Dose: 1 each Lorazepam (Ativan) 1 mg PO BID PRN; Protocol PRN Reason: Anxiety Stop: 07/25/18 17:44 Memantine (Namenda) 10 mg PO BID [facility] Stop: 07/26/18 08:59 Last Admin: 05/29/18 16:16 Dose: 10 mg Miscellaneous (Probiotic Screen) 1 [facility] PRN PRN PRN Reason: PROTOCOL Stop: 07/26/18 14:27 Miscellaneous (Misc Oral Tab) 3 tab PO BID [facility] Stop: 07/27/18 08:59 Last Admin: 05/29/18 16:17 Dose: 3 tab Sertraline HCl (Zoloft) 200 mg PO HS [facility] Stop: 07/26/18 21:59 Last Admin: 05/28/18 21:35 Dose: 200 mg 05/28/18 05/28/18 05/29/18 19:25 20:00 00:00 Temp 98 F 98.2 F HR 61 58 75 RR 18 18 18 BP 135/67 154/61 O2 Sat % 95 98 97 05/29/18 05/29/18 05/29/18 04:00 07:00 08:00 Temp 98 F 97.9 F HR 98 58 55 RR 18 12 18 BP 138/78 159/73 O2 Sat % 97 94 96 05/29/18 05/29/18 12:00 15:46 Temp 98.2 F 98.8 F HR 56 53 RR 18 18 BP 148/53 154/68 O2 Sat % 97 100 Microbiology 05/28/18 05:30 Blood - Preliminary NO GROWTH AFTER 24 HOURS 05/28/18 05:15 Blood - Preliminary NO GROWTH AFTER 24 HOURS 05/25/18 17:45 Blood - Final 05/25/18 18:00 Blood - Preliminary NO GROWTH AFTER 48 HOURS 05/25/18 17:50 Nares - Final NO MRSA ISOLATED Infectious Disease Objective - Results Result Diagrams: 05/27/18 05:05 05/27/18 05:05 Recent Labs: Laboratory Last Values WBC 5.4 Th/cmm (4.8-10.8) 05/27/18 05:05 RBC 4.21 Mil/cmm (3.80-5.10) 05/27/18 05:05 Hgb 12.2 gm/dL (12-16) 05/27/18 05:05 Hct 36.6 % (41.0-60) L 05/27/18 05:05 MCV 86.9 fl (81-100) 05/27/18 05:05 MCH 29.0 pg (27.0-31.0) 05/27/18 05:05 MCHC Differential 33.4 pg (28.0-36.0) 05/27/18 05:05 RDW 12.8 % (11.5-20.0) 05/27/18 05:05 Plt Count 216 Th/cmm (150-400) 05/27/18 05:05 MPV 8.0 fl 05/27/18 05:05 Neutrophils % 63.0 % (40.0-80.0) 05/27/18 05:05 Lymphocytes % 23.0 % (20.0-50.0) 05/27/18 05:05 Monocytes % 13.3 % (2.0-10.0) H 05/27/18 05:05 Eosinophils % 0.6 % (0.0-5.0) 05/27/18 05:05 Basophils % 0.1 % (0.0-2.0) 05/27/18 05:05 PT 10.2 SECONDS (9.5-11.5) 05/25/18 17:45 INR 0.98 (0.5-1.4) 05/25/18 17:45 PTT (Actin FS) 26.8 SECONDS (26.0-38.0) 05/25/18 17:45 Sodium 140 mEq/L (136-145) 05/27/18 05:05 Potassium 3.7 mEq/L (3.5-5.1) 05/27/18 05:05 Chloride 105 mEq/L (98-107) 05/27/18 05:05 Carbon Dioxide 25.7 mEq/L (21.0-31.0) 05/27/18 05:05 Anion Gap 13.0 (7.0-16.0) 05/27/18 05:05 BUN 13 mg/dL (7-25) 05/27/18 05:05 Creatinine 0.6 mg/dL (0.6-1.2) 05/27/18 05:05 Est GFR ( Amer) > 60.0 ml/min (>90) 05/27/18 05:05 Est GFR (Non-Af Amer) > 60.0 ml/min 05/27/18 05:05 BUN/Creatinine Ratio 21.7 05/27/18 05:05 Glucose 95 mg/dL (70-105) 05/27/18 05:05 Whole Bld Lactic Acid 0.99 mmol/L (0.60-1.99) 05/25/18 17:45 Calcium 9.0 mg/dL (8.6-10.3) 05/27/18 05:05 Total Bilirubin 0.3 mg/dL (0.3-1.0) 05/26/18 06:00 AST 19 U/L (13-39) 05/26/18 06:00 ALT 17 U/L (7-52) 05/26/18 06:00 Alkaline Phosphatase 93 U/L (34-104) 05/26/18 06:00 Creatine Kinase 52 U/L (30-223) 05/25/18 17:45 Troponin I 0.02 ng/mL (0.01-0.05) 05/25/18 17:45 Total Protein 6.3 gm/dL (6.0-8.3) 05/26/18 06:00 Albumin 3.5 gm/dL (3.7-5.3) L 05/26/18 06:00 Globulin 2.8 gm/dL 05/26/18 06:00 Albumin/Globulin Ratio 1.3 (1.0-1.8) 05/26/18 06:00 Triglycerides 69 mg/dL (<150) 05/26/18 06:00 Cholesterol 145 mg/dL (<200) 05/26/18 06:00 LDL Cholesterol Direct 79 mg/dL (75-193) 05/26/18 06:00 HDL Cholesterol 48 mg/dL (23-92) 05/26/18 06:00 Amylase 26 U/L (29-103) L 05/25/18 17:45 Lipase 147 U/L (11-82) H 05/25/18 17:45 Urine Source MIDSTREAM 05/25/18 18:10 Urine Color YELLOW 05/25/18 18:10 Urine Clarity CLEAR (CLEAR) 05/25/18 18:10 Urine pH 6.0 (4.6 - 8.0) 05/25/18 18:10 Ur Specific [place] 1.020 (1.005-1.030) 05/25/18 18:10 Urine Protein NEGATIVE mg/dL (NEGATIVE) 05/25/18 18:10 Urine Glucose (UA) NEGATIVE mg/dL (NEGATIVE) 05/25/18 18:10 Urine Ketones NEGATIVE mg/dL (NEGATIVE) 05/25/18 18:10 Urine Blood NEGATIVE (NEGATIVE) 05/25/18 18:10 Urine Nitrate NEGATIVE (NEGATIVE) 05/25/18 18:10 Urine Bilirubin NEGATIVE (NEGATIVE) 05/25/18 18:10 Urine Urobilinogen 0.2 E.U./dL (0.2 - 1.0) 05/25/18 18:10 Ur Leukocyte Esterase NEGATIVE (NEGATIVE) 05/25/18 18:10 Urine RBC 0-2 /hpf (0-5) 05/25/18 18:10 Urine WBC 2-5 /hpf (0-5) 05/25/18 18:10 Ur Epithelial Cells FEW /lpf (FEW) 05/25/18 18:10 Urine Bacteria FEW /hpf (NONE SEEN) 05/25/18 18:10 Urine Mucus FEW /lpf (FEW) 05/25/18 18:10 Vancomycin Trough 10.8 ug/mL (5-10) H 05/29/18 15:03 Influenza A (Rapid) NEG FOR INF A 05/26/18 16:45 Influenza B (Rapid) NEG FOR INF B 05/26/18 16:45 - Physical Exam Vitals and I&O: Vital Signs Temp 98.8 F 05/29/18 15:46 Pulse 53 05/29/18 15:46 Resp 18 05/29/18 15:46 BP 154/68 05/29/18 15:46 Pulse Ox 100 05/29/18 15:46 Intake & Output 05/28/18 05/29/18 05/29/18 18:59 06:59 18:59 Intake Total 1250 1505 Balance 1250 1505 Weight (lbs) 56.245 kg Intake: Intake, IV Amount 1250 1305 D5-0.45NS 1,000 ml @ 75 1000 1005 mls/hr IV .[id number] [facility] Rx #:[id number] Levofloxacin 250mg/50mL 50 250 mg In 50 ml @ 50 mls/ hr IV Q24HR [facility] Rx#: [id number] Vancomycin HCl 1 gm In 250 250 Sodium Chloride 0.9% 250 ml @ 165 mls/hr IV Q12H [facility] Rx#:[id number] Oral 200 Other: # Voids 2 # Bowel Movements 2 Weight Source Bedscale Active Medications: Current Medications Acetaminophen (Tylenol) 650 mg PO Q4HR PRN PRN Reason: Pain Or Fever above 101 Stop: 07/25/18 17:45 Last Admin: 05/29/18 11:37 Dose: 650 mg Aripiprazole (Abilify) 2.5 mg PO HS [facility]; Protocol Stop: 07/25/18 20:59 Last Admin: 05/28/18 21:35 Dose: 2.5 mg Benztropine Mesylate (Cogentin) 0.5 mg PO BID [facility] Stop: 07/26/18 08:59 Last Admin: 05/29/18 16:16 Dose: 0.5 mg Dextromethorphan/Quinidine (Nuedexta 20mg-10mg) 1 cap PO DAILY [facility] Stop: 07/26/18 08:59 Last Admin: 05/29/18 08:13 Dose: 1 cap Donepezil HCl (Aricept) 10 mg PO HS [facility] Stop: 07/26/18 20:59 Last Admin: 05/28/18 21:35 Dose: 10 mg Levofloxacin (Levaquin Pb) 250 mg in 50 mls @ 50 mls/hr IV Q24HR [facility]; Protocol Stop: 07/26/18 00:59 Last Infusion: 05/29/18 02:50 Dose: Infused Dextrose/Sodium Chloride (D5-0.45ns) 1,000 mls @ 75 mls/hr IV .[id number] [facility] Stop: 07/25/18 00:28 Last Admin: 05/29/18 05:23 Dose: 75 mls/hr Lactobacillus Rhamnosus (Culturelle 15b) 1 each PO DAILY [facility] Stop: 07/27/18 08:59 Last Admin: 05/29/18 08:13 Dose: 1 each Lorazepam (Ativan) 1 mg PO BID PRN; Protocol PRN Reason: Anxiety Stop: 07/25/18 17:44 Memantine (Namenda) 10 mg PO BID [facility] Stop: 07/26/18 08:59 Last Admin: 05/29/18 16:16 Dose: 10 mg Miscellaneous (Probiotic Screen) 1 ea [facility] PRN PRN PRN Reason: PROTOCOL Stop: 07/26/18 14:27 Miscellaneous (Misc Oral Tab) 3 tab PO BID [facility] Stop: 07/27/18 08:59 Last Admin: 05/29/18 16:17 Dose: 3 tab Sertraline HCl (Zoloft) 200 mg PO HS [facility] Stop: 07/26/18 21:59 Last Admin: 05/28/18 21:35 Dose: 200 mg - Procedures Procedures: Procedures Procedure Code Date APPLICATION LOWER LEG SPLINT 20066 01/16/05 APPLICATION OF SPLINT 93.54 01/16/05 EEG MONITORING/GIVING DRUGS 01102 01/02/98 ELECTROENCEPHALOGRAM 89.14 01/02/98 Nutritional Asmnt/Malnutr-PDOC - Dietary Evaluation Malnutrition Findings (Please click <Entered> for more info): Nutritional Asmnt/Malnutrition Start: 05/26/18 15: 45 Text: Status: Complete Freq: Protocol: Document 05/26/18 15:45 LCHENG (Rec: 05/26/18 15:49 [email or web address]) Nutritional Asmnt/Malnutrition Patient General Information Nutritional Screening High Risk Diagnosis FTT, dehydration Pertinent Medical Hx/Surgical Hx no H&P as of now Subjective Information Pt seen lying in bed at time of visit, awake and alert. Pt stated appetite is ok, no food preference. Current Diet Order/ Nutrition Support CCHO 45g, mech soft Pertinent Medications D5-0.45ns Pertinent Labs 05/26 reviewed Nutritional Hx/Data Height 1.52 m Height (Calculated Centimeters) 152.4 Current Weight (lbs) 58.967 kg Weight (Calculated Kilograms) 59.0 Weight (Calculated Grams) 92297.0 [place] Body Weight 100 Body Mass Index (BMI) 25.4 Weight Status Overweight GI Symptoms GI Symptoms None Last BM not indicated Difficult in: None Skin Integrity/Comment: intact Estimated Nutritional Goals BEE in Kcals: Using Current wt Calories/Kcals/Kg 23-27 Kcals Calculated 8630-1979 Protein: Using Current wt Protein g/k Protein Calculated 59 Fluid: ml 1357-1593ml (1ml/kcal) Nutritional Problem No current Nutrition Prob Problem N/A Malnutrition Alert Is there a minimum of two criteria No selected? Query Text:Check all the applicable criteria. A minimum of two criteria are recommended for diagnosis of either severe or non-severe malnutrition. Malnutrition Related to Morbid Obesity Malnutrition related to morbid obesity No Intervention/Recommendation Comments 1. Continue with [facility] 45gm [facility] soft diet as ordered. If PO intake low < 50%, consider adding nutrtiion supplements. 2. Monitor PO intake, wt, labs and skin integrity 3. F/U as high risk in 2-3 days Expected Outcomes/Goals Expected Outcomes/Goals 1. PO intake to meet at least 75% of nutritional needs. 2. Wt stability, skin to remain intact, labs to approach WNL.
[2018-05-30] MEDS: Levofloxacin 250mg/50mL 250 MG/50 ML BAG IV SCH (01:29)
[2018-05-30 05:07] LABS: EOSINOPHILE ABSOLUTE 0.1 Th/cmm (0.1-0.4); HEMATOCRIT 38.5 % (41.0-60); HEMOGLOBIN 12.6 gm/dL (12-16); MEAN CELL VOLUME 88.1 fl (81-100); MEAN CORPUSCULAR HEMOGLOBIN 28.8 pg (27.0-31.0); MEAN CORPUSCULAR HGB CONC 32.7 pg (28.0-36.0); MEAN PLATELET VOLUME 7.9 fl; MONOCYTE ABSOLUTE 0.6 Th/cmm (0.3-1.0); NEUTROPHILE ABSOLUTE 2.4 Th/cmm (1.8-8.0); PLATELET COUNT 286 Th/cmm (150-400); RED BLOOD COUNT 4.37 Mil/cmm (3.80-5.10); RED CELL DISTRIBUTION WIDTH 12.4 % (11.5-20.0); WHITE BLOOD COUNT 4.1 Th/cmm (4.8-10.8)
[2018-05-30 06:09] LABS: ALB/GLOB RATIO 1.1 (1.0-1.8); ALBUMIN 3.6 gm/dL (3.7-5.3); ALKALINE PHOSPHATASE 92 U/L (34-104); ANION GAP 13.7 (7.0-16.0); BILIRUBIN,TOTAL 0.4 mg/dL (0.3-1.0); BUN - UREA NITROGEN 8 mg/dL (7-25); CALCIUM SERUM 9.1 mg/dL (8.6-10.3); CARBON DIOXIDE 25.6 mEq/L (21.0-31.0); CHLORIDE 106 mEq/L (98-107); CREATININE - SERUM 0.6 mg/dL (0.6-1.2); GFR AFRICAN-AMERICAN > 60.0 ml/min (>90); GFR NON AFRICAN-AMERICAN > 60.0 ml/min; GLUCOSE 111 mg/dL (70-105); POTASSIUM SERUM 3.3 mEq/L (3.5-5.1); SGOT 18 U/L (13-39); SGPT/ALT 18 U/L (7-52); SODIUM SERUM 142 mEq/L (136-145); TOTAL PROTEIN,SERUM 6.9 gm/dL (6.0-8.3)
[2018-05-30 08:25] LABS: BAND NEUTROPHILE 3 % (0-10); BASOPHIL 0 % (0-3); EOSINOPHIL 4 % (0-5); LYMPHOCYTE 25 % (20-50); MONOCYTE 19 % (2-10); NEUTROPHILS 49 % (40-80); PLATELET ESTIMATE ADEQUATE (NORMAL)
[2018-05-30] MEDS: BUSPIRONE 10 MG PO SCH (08:31)
[2018-05-30] MEDS: Dextromethorphan/Quinidine 20mg/10mg Cap PO SCH (08:31)
[2018-05-30] MEDS: Lactobacillus Rhamnosus GG 15 Billion CFU CAP.SPRINK PO SCH (08:31)
--- NOTE | 2018-05-30 11:14 | Internal Medicine Prog Note ---
Internal Medicine Subjective - Subjective Service Date: 05/30/18 Patient seen and examined:: with staff, chart reviewed Patient is:: awake, verbal, talking, confused, other (no fever) Patient Complaints of:: congestion, cough, SOB Per staff patient has:: no adverse event, no episodes of fall, poor oral intake , agitated, other (Failure to thrive) Internal Medicine Objective - Results Result Diagrams: 05/30/18 04:50 05/30/18 04:50 Recent Labs: Laboratory Last Values WBC 4.1 Th/cmm (4.8-10.8) L 05/30/18 04:50 RBC 4.37 Mil/cmm (3.80-5.10) 05/30/18 04:50 Hgb 12.6 gm/dL (12-16) 05/30/18 04:50 Hct 38.5 % (41.0-60) L 05/30/18 04:50 MCV 88.1 fl (81-100) 05/30/18 04:50 MCH 28.8 pg (27.0-31.0) 05/30/18 04:50 MCHC Differential 32.7 pg (28.0-36.0) 05/30/18 04:50 RDW 12.4 % (11.5-20.0) 05/30/18 04:50 Plt Count 286 Th/cmm (150-400) 05/30/18 04:50 MPV 7.9 fl 05/30/18 04:50 Add Manual Diff YES 05/30/18 04:50 Neutrophils % 63.0 % (40.0-80.0) 05/27/18 05:05 Band Neutrophils % 3 % (0-10) 05/30/18 04:50 Lymphocytes % 23.0 % (20.0-50.0) 05/27/18 05:05 Monocytes % 13.3 % (2.0-10.0) H 05/27/18 05:05 Eosinophils % 0.6 % (0.0-5.0) 05/27/18 05:05 Basophils % 0.1 % (0.0-2.0) 05/27/18 05:05 Neutrophils (Manual) 49 % (40-80) 05/30/18 04:50 Lymphocytes 25 % (20-50) 05/30/18 04:50 Monocytes 19 % (2-10) H 05/30/18 04:50 Eosinophils 4 % (0-5) 05/30/18 04:50 Basophils 0 % (0-3) 05/30/18 04:50 Platelet Estimate ADEQUATE (NORMAL) 05/30/18 04:50 PT 10.2 SECONDS (9.5-11.5) 05/25/18 17:45 INR 0.98 (0.5-1.4) 05/25/18 17:45 PTT (Actin FS) 26.8 SECONDS (26.0-38.0) 05/25/18 17:45 Sodium 142 mEq/L (136-145) 05/30/18 04:50 Potassium 3.3 mEq/L (3.5-5.1) L 05/30/18 04:50 Chloride 106 mEq/L (98-107) 05/30/18 04:50 Carbon Dioxide 25.6 mEq/L (21.0-31.0) 05/30/18 04:50 Anion Gap 13.7 (7.0-16.0) 05/30/18 04:50 BUN 8 mg/dL (7-25) 05/30/18 04:50 Creatinine 0.6 mg/dL (0.6-1.2) 05/30/18 04:50 Est GFR ( Amer) > 60.0 ml/min (>90) 05/30/18 04:50 Est GFR (Non-Af Amer) > 60.0 ml/min 05/30/18 04:50 BUN/Creatinine Ratio 13.3 05/30/18 04:50 Glucose 111 mg/dL (70-105) H 05/30/18 04:50 Whole Bld Lactic Acid 0.99 mmol/L (0.60-1.99) 05/25/18 17:45 Calcium 9.1 mg/dL (8.6-10.3) 05/30/18 04:50 Total Bilirubin 0.4 mg/dL (0.3-1.0) 05/30/18 04:50 AST 18 U/L (13-39) 05/30/18 04:50 ALT 18 U/L (7-52) 05/30/18 04:50 Alkaline Phosphatase 92 U/L (34-104) 05/30/18 04:50 Creatine Kinase 52 U/L (30-223) 05/25/18 17:45 Troponin I 0.02 ng/mL (0.01-0.05) 05/25/18 17:45 Total Protein 6.9 gm/dL (6.0-8.3) 05/30/18 04:50 Albumin 3.6 gm/dL (3.7-5.3) L 05/30/18 04:50 Globulin 3.3 gm/dL 05/30/18 04:50 Albumin/Globulin Ratio 1.1 (1.0-1.8) 05/30/18 04:50 Triglycerides 69 mg/dL (<150) 05/26/18 06:00 Cholesterol 145 mg/dL (<200) 05/26/18 06:00 LDL Cholesterol Direct 79 mg/dL (75-193) 05/26/18 06:00 HDL Cholesterol 48 mg/dL (23-92) 05/26/18 06:00 Amylase 26 U/L (29-103) L 05/25/18 17:45 Lipase 147 U/L (11-82) H 05/25/18 17:45 Urine Source MIDSTREAM 05/25/18 18:10 Urine Color YELLOW 05/25/18 18:10 Urine Clarity CLEAR (CLEAR) 05/25/18 18:10 Urine pH 6.0 (4.6 - 8.0) 05/25/18 18:10 Ur Specific [place] 1.020 (1.005-1.030) 05/25/18 18:10 Urine Protein NEGATIVE mg/dL (NEGATIVE) 05/25/18 18:10 Urine Glucose (UA) NEGATIVE mg/dL (NEGATIVE) 05/25/18 18:10 Urine Ketones NEGATIVE mg/dL (NEGATIVE) 05/25/18 18:10 Urine Blood NEGATIVE (NEGATIVE) 05/25/18 18:10 Urine Nitrate NEGATIVE (NEGATIVE) 05/25/18 18:10 Urine Bilirubin NEGATIVE (NEGATIVE) 05/25/18 18:10 Urine Urobilinogen 0.2 E.U./dL (0.2 - 1.0) 05/25/18 18:10 Ur Leukocyte Esterase NEGATIVE (NEGATIVE) 05/25/18 18:10 Urine RBC 0-2 /hpf (0-5) 05/25/18 18:10 Urine WBC 2-5 /hpf (0-5) 05/25/18 18:10 Ur Epithelial Cells FEW /lpf (FEW) 05/25/18 18:10 Urine Bacteria FEW /hpf (NONE SEEN) 05/25/18 18:10 Urine Mucus FEW /lpf (FEW) 05/25/18 18:10 Vancomycin Trough 10.8 ug/mL (5-10) H 05/29/18 15:03 Influenza A (Rapid) NEG FOR INF A 05/26/18 16:45 Influenza B (Rapid) NEG FOR INF B 05/26/18 16:45 - Physical Exam Vitals and I&O: Vital Signs Temp 98.1 F 05/30/18 07:56 Pulse 65 05/30/18 07:56 Resp 18 05/30/18 08:00 BP 131/74 05/30/18 07:56 Pulse Ox 100 05/30/18 07:56 Intake & Output 05/29/18 05/30/18 05/30/18 18:59 06:59 18:59 Intake Total 1400 250 Balance 1400 250 Weight (lbs) 56.245 kg 56.245 kg Intake: Intake, IV Amount 1000 50 D5-0.45NS 1,000 ml @ 75 1000 mls/hr IV .[id number] [facility] Rx #:[id number] Levofloxacin 250mg/50mL 50 250 mg In 50 ml @ 50 mls/ hr IV Q24HR [facility] Rx#: [id number] Oral 400 200 Other: # Voids 3 3 # Bowel Movements 1 0 Stool Characteristics Soft Brown Weight Source Bedscale Bedscale Active Medications: Current Medications Acetaminophen (Tylenol) 650 mg PO Q4HR PRN PRN Reason: Pain Or Fever above 101 Stop: 07/25/18 17:45 Last Admin: 05/29/18 11:37 Dose: 650 mg Aripiprazole (Abilify) 2.5 mg PO HS [facility]; Protocol Stop: 07/25/18 20:59 Last Admin: 05/29/18 21:06 Dose: 2.5 mg Benztropine Mesylate (Cogentin) 0.5 mg PO BID [facility] Stop: 07/26/18 08:59 Last Admin: 05/30/18 08:31 Dose: 0.5 mg Dextromethorphan/Quinidine (Nuedexta 20mg-10mg) 1 cap PO DAILY [facility] Stop: 07/26/18 08:59 Last Admin: 05/30/18 08:31 Dose: 1 cap Donepezil HCl (Aricept) 10 mg PO HS [facility] Stop: 07/26/18 20:59 Last Admin: 05/29/18 21:06 Dose: 10 mg Levofloxacin (Levaquin Pb) 250 mg in 50 mls @ 50 mls/hr IV Q24HR [facility]; Protocol Stop: 07/26/18 00:59 Last Infusion: 05/30/18 03:15 Dose: Infused Dextrose/Sodium Chloride (D5-0.45ns) 1,000 mls @ 75 mls/hr IV .[id number] [facility] Stop: 07/25/18 00:28 Last Admin: 05/29/18 22:27 Dose: 75 mls/hr Lactobacillus Rhamnosus (Culturelle 15b) 1 each PO DAILY [facility] Stop: 07/27/18 08:59 Last Admin: 05/30/18 08:31 Dose: 1 each Lorazepam (Ativan) 1 mg PO BID PRN; Protocol PRN Reason: Anxiety Stop: 07/25/18 17:44 Memantine (Namenda) 10 mg PO BID [facility] Stop: 07/26/18 08:59 Last Admin: 05/30/18 08:31 Dose: 10 mg Miscellaneous (Probiotic Screen) 1 ea [facility] PRN PRN PRN Reason: PROTOCOL Stop: 07/26/18 14:27 Miscellaneous (Misc Oral Tab) 3 tab PO BID [facility] Stop: 07/27/18 08:59 Last Admin: 05/30/18 08:31 Dose: 3 tab Sertraline HCl (Zoloft) 200 mg PO HS [facility] Stop: 07/26/18 21:59 Last Admin: 05/29/18 21:06 Dose: 200 mg General: weak, lethargic, congested, demented, other (Hx of Mental Retardation.) HEENT: NC/AT Neck: Supple, No JVD Lungs: CTAB, rales, ronchi Cardiovascular: RRR, Normal S1 Abdomen: soft, non-tender Extremities: clear Neurological: no change, disorganized, muscle weakness - Procedures Procedures: Procedures Procedure Code Date APPLICATION LOWER LEG SPLINT 12811 01/16/05 APPLICATION OF SPLINT 93.54 01/16/05 EEG MONITORING/GIVING DRUGS 96502 01/02/98 ELECTROENCEPHALOGRAM 89.14 01/02/98 Internal Medicine Assmt/Plan - Assessment Assessment: Poor oral intake Failure to thrive Systemic Inflammatory Response Syndrome Generalized weakness Mental Retardation Dementia Pneumonia Sepsis Psychosis Aggressive behavior - Plan Plan: Continuation of care continue antibiotics and present meds as directed Monitor diet GI followup and ID followup Monitor mental health status Reposition Q2 hours, Continue local skin care fall precaution continue present care management Nutritional Asmnt/Malnutr-PDOC - Dietary Evaluation Malnutrition Findings (Please click <Entered> for more info): Nutritional Asmnt/Malnutrition Start: 05/26/18 15: 45 Text: Status: Complete Freq: Protocol: Document 05/26/18 15:45 LCHENG (Rec: 05/26/18 15:49 [email or web address]) Nutritional Asmnt/Malnutrition Patient General Information Nutritional Screening High Risk Diagnosis FTT, dehydration Pertinent Medical Hx/Surgical Hx no H&P as of now Subjective Information Pt seen lying in bed at time of visit, awake and alert. Pt stated appetite is ok, no food preference. Current Diet Order/ Nutrition Support CCHO 45g, mech soft Pertinent Medications D5-0.45ns Pertinent Labs 05/26 reviewed Nutritional Hx/Data Height 1.52 m Height (Calculated Centimeters) 152.4 Current Weight (lbs) 58.967 kg Weight (Calculated Kilograms) 59.0 Weight (Calculated Grams) 27456.0 [place] Body Weight 100 Body Mass Index (BMI) 25.4 Weight Status Overweight GI Symptoms GI Symptoms None Last BM not indicated Difficult in: None Skin Integrity/Comment: intact Estimated Nutritional Goals BEE in Kcals: Using Current wt Calories/Kcals/Kg 23-27 Kcals Calculated 2938-5081 Protein: Using Current wt Protein g/k Protein Calculated 59 Fluid: ml 1357-1593ml (1ml/kcal) Nutritional Problem No current Nutrition Prob Problem N/A Malnutrition Alert Is there a minimum of two criteria No selected? Query Text:Check all the applicable criteria. A minimum of two criteria are recommended for diagnosis of either severe or non-severe malnutrition. Malnutrition Related to Morbid Obesity Malnutrition related to morbid obesity No Intervention/Recommendation Comments 1. Continue with CCHO 45gm mech soft diet as ordered. If PO intake low < 50%, consider adding nutrtiion supplements. 2. Monitor PO intake, wt, labs and skin integrity 3. F/U as high risk in 2-3 days Expected Outcomes/Goals Expected Outcomes/Goals 1. PO intake to meet at least 75% of nutritional needs. 2. Wt stability, skin to remain intact, labs to approach WNL.
--- NOTE | 2018-05-30 13:25 | Infectious Disease Prog Note ---
Infectious Disease Subjective - Review of Systems Service Date: 05/30/18 Subjective: There is no new change, no fever. Infectious Disease Objective - Results Result Diagrams: 05/30/18 04:50 05/30/18 04:50 Recent Labs: Laboratory Last Values WBC 4.1 Th/cmm (4.8-10.8) L 05/30/18 04:50 RBC 4.37 Mil/cmm (3.80-5.10) 05/30/18 04:50 Hgb 12.6 gm/dL (12-16) 05/30/18 04:50 Hct 38.5 % (41.0-60) L 05/30/18 04:50 MCV 88.1 fl (81-100) 05/30/18 04:50 MCH 28.8 pg (27.0-31.0) 05/30/18 04:50 MCHC Differential 32.7 pg (28.0-36.0) 05/30/18 04:50 RDW 12.4 % (11.5-20.0) 05/30/18 04:50 Plt Count 286 Th/cmm (150-400) 05/30/18 04:50 MPV 7.9 fl 05/30/18 04:50 Add Manual Diff YES 05/30/18 04:50 Neutrophils % 63.0 % (40.0-80.0) 05/27/18 05:05 Band Neutrophils % 3 % (0-10) 05/30/18 04:50 Lymphocytes % 23.0 % (20.0-50.0) 05/27/18 05:05 Monocytes % 13.3 % (2.0-10.0) H 05/27/18 05:05 Eosinophils % 0.6 % (0.0-5.0) 05/27/18 05:05 Basophils % 0.1 % (0.0-2.0) 05/27/18 05:05 Neutrophils (Manual) 49 % (40-80) 05/30/18 04:50 Lymphocytes 25 % (20-50) 05/30/18 04:50 Monocytes 19 % (2-10) H 05/30/18 04:50 Eosinophils 4 % (0-5) 05/30/18 04:50 Basophils 0 % (0-3) 05/30/18 04:50 Platelet Estimate ADEQUATE (NORMAL) 05/30/18 04:50 PT 10.2 SECONDS (9.5-11.5) 05/25/18 17:45 INR 0.98 (0.5-1.4) 05/25/18 17:45 PTT (Actin FS) 26.8 SECONDS (26.0-38.0) 05/25/18 17:45 Sodium 142 mEq/L (136-145) 05/30/18 04:50 Potassium 3.3 mEq/L (3.5-5.1) L 05/30/18 04:50 Chloride 106 mEq/L (98-107) 05/30/18 04:50 Carbon Dioxide 25.6 mEq/L (21.0-31.0) 05/30/18 04:50 Anion Gap 13.7 (7.0-16.0) 05/30/18 04:50 BUN 8 mg/dL (7-25) 05/30/18 04:50 Creatinine 0.6 mg/dL (0.6-1.2) 05/30/18 04:50 Est GFR ( Amer) > 60.0 ml/min (>90) 05/30/18 04:50 Est GFR (Non-Af Amer) > 60.0 ml/min 05/30/18 04:50 BUN/Creatinine Ratio 13.3 05/30/18 04:50 Glucose 111 mg/dL (70-105) H 05/30/18 04:50 Whole Bld Lactic Acid 0.99 mmol/L (0.60-1.99) 05/25/18 17:45 Calcium 9.1 mg/dL (8.6-10.3) 05/30/18 04:50 Total Bilirubin 0.4 mg/dL (0.3-1.0) 05/30/18 04:50 AST 18 U/L (13-39) 05/30/18 04:50 ALT 18 U/L (7-52) 05/30/18 04:50 Alkaline Phosphatase 92 U/L (34-104) 05/30/18 04:50 Creatine Kinase 52 U/L (30-223) 05/25/18 17:45 Troponin I 0.02 ng/mL (0.01-0.05) 05/25/18 17:45 Total Protein 6.9 gm/dL (6.0-8.3) 05/30/18 04:50 Albumin 3.6 gm/dL (3.7-5.3) L 05/30/18 04:50 Globulin 3.3 gm/dL 05/30/18 04:50 Albumin/Globulin Ratio 1.1 (1.0-1.8) 05/30/18 04:50 Triglycerides 69 mg/dL (<150) 05/26/18 06:00 Cholesterol 145 mg/dL (<200) 05/26/18 06:00 LDL Cholesterol Direct 79 mg/dL (75-193) 05/26/18 06:00 HDL Cholesterol 48 mg/dL (23-92) 05/26/18 06:00 Amylase 26 U/L (29-103) L 05/25/18 17:45 Lipase 147 U/L (11-82) H 05/25/18 17:45 Urine Source MIDSTREAM 05/25/18 18:10 Urine Color YELLOW 05/25/18 18:10 Urine Clarity CLEAR (CLEAR) 05/25/18 18:10 Urine pH 6.0 (4.6 - 8.0) 05/25/18 18:10 Ur Specific [place] 1.020 (1.005-1.030) 05/25/18 18:10 Urine Protein NEGATIVE mg/dL (NEGATIVE) 05/25/18 18:10 Urine Glucose (UA) NEGATIVE mg/dL (NEGATIVE) 05/25/18 18:10 Urine Ketones NEGATIVE mg/dL (NEGATIVE) 05/25/18 18:10 Urine Blood NEGATIVE (NEGATIVE) 05/25/18 18:10 Urine Nitrate NEGATIVE (NEGATIVE) 05/25/18 18:10 Urine Bilirubin NEGATIVE (NEGATIVE) 05/25/18 18:10 Urine Urobilinogen 0.2 E.U./dL (0.2 - 1.0) 05/25/18 18:10 Ur Leukocyte Esterase NEGATIVE (NEGATIVE) 05/25/18 18:10 Urine RBC 0-2 /hpf (0-5) 05/25/18 18:10 Urine WBC 2-5 /hpf (0-5) 05/25/18 18:10 Ur Epithelial Cells FEW /lpf (FEW) 05/25/18 18:10 Urine Bacteria FEW /hpf (NONE SEEN) 05/25/18 18:10 Urine Mucus FEW /lpf (FEW) 05/25/18 18:10 Vancomycin Trough 10.8 ug/mL (5-10) H 05/29/18 15:03 Influenza A (Rapid) NEG FOR INF A 05/26/18 16:45 Influenza B (Rapid) NEG FOR INF B 05/26/18 16:45 - Physical Exam Vitals and I&O: Vital Signs Temp 98.5 F 05/30/18 12:11 Pulse 68 05/30/18 12:11 Resp 18 05/30/18 12:11 BP 136/70 05/30/18 12:11 Pulse Ox 100 05/30/18 12:11 Intake & Output 05/29/18 05/30/18 05/30/18 18:59 06:59 18:59 Intake Total 1400 250 Balance 1400 250 Weight (lbs) 56.245 kg 56.245 kg Intake: Intake, IV Amount 1000 50 D5-0.45NS 1,000 ml @ 75 1000 mls/hr IV .[id number] [facility] Rx #:[id number] Levofloxacin 250mg/50mL 50 250 mg In 50 ml @ 50 mls/ hr IV Q24HR [facility] Rx#: [id number] Oral 400 200 Other: # Voids 3 3 # Bowel Movements 1 0 Stool Characteristics Soft Brown Weight Source Bedscale Bedscale Active Medications: Current Medications Acetaminophen (Tylenol) 650 mg PO Q4HR PRN PRN Reason: Pain Or Fever above 101 Stop: 07/25/18 17:45 Last Admin: 05/29/18 11:37 Dose: 650 mg Aripiprazole (Abilify) 2.5 mg PO [facility]; Protocol Stop: 07/25/18 20:59 Last Admin: 05/29/18 21:06 Dose: 2.5 mg Benztropine Mesylate (Cogentin) 0.5 mg PO BID [facility] Stop: 07/26/18 08:59 Last Admin: 05/30/18 08:31 Dose: 0.5 mg Dextromethorphan/Quinidine (Nuedexta 20mg-10mg) 1 cap PO DAILY [facility] Stop: 07/26/18 08:59 Last Admin: 05/30/18 08:31 Dose: 1 cap Donepezil HCl (Aricept) 10 mg PO [facility] Stop: 07/26/18 20:59 Last Admin: 05/29/18 21:06 Dose: 10 mg Levofloxacin (Levaquin Pb) 250 mg in 50 mls @ 50 mls/hr IV Q24HR [facility]; Protocol Stop: 07/26/18 00:59 Last Infusion: 05/30/18 03:15 Dose: Infused Dextrose/Sodium Chloride (D5-0.45ns) 1,000 mls @ 75 mls/hr IV .[id number] [facility] Stop: 07/25/18 00:28 Last Admin: 05/29/18 22:27 Dose: 75 mls/hr Lactobacillus Rhamnosus (Culturelle 15b) 1 each PO DAILY [facility] Stop: 07/27/18 08:59 Last Admin: 05/30/18 08:31 Dose: 1 each Lorazepam (Ativan) 1 mg PO BID PRN; Protocol PRN Reason: Anxiety Stop: 07/25/18 17:44 Memantine (Namenda) 10 mg PO BID [facility] Stop: 07/26/18 08:59 Last Admin: 05/30/18 08:31 Dose: 10 mg Miscellaneous (Probiotic Screen) 1 ea [facility] PRN PRN PRN Reason: PROTOCOL Stop: 07/26/18 14:27 Miscellaneous (Misc Oral Tab) 3 tab PO BID [facility] Stop: 07/27/18 08:59 Last Admin: 05/30/18 08:31 Dose: 3 tab Sertraline HCl (Zoloft) 200 mg PO HS [facility] Stop: 07/26/18 21:59 Last Admin: 05/29/18 21:06 Dose: 200 mg General: no acute distress, well developed, well nourished HEENT: atraumatic, normocephalic, PERRLA, EOMI Neck: supple, no thyromegaly, no lymphadenopathy Cardiovascular: S1S2, regular Lungs: clear to auscultation bilaterally, clear to percussion Abdomen: soft, no tender, no distended Extremities: no cyanosis, no clubbing, no edema Neurological: awake, alert, oriented Skin: intact - Procedures Procedures: Procedures Procedure Code Date APPLICATION LOWER LEG SPLINT 11864 01/16/05 APPLICATION OF SPLINT 93.54 01/16/05 EEG MONITORING/GIVING DRUGS 86177 01/02/98 ELECTROENCEPHALOGRAM 89.14 01/02/98 Infectious Disease Assmt/Plan - Assessment Assessment: 1. Staph bacteremia. 2. ?pneumonia - Plan Plan: dc antibiotics and dc from id point of view. Nutritional Asmnt/Malnutr-PDOC - Dietary Evaluation Malnutrition Findings (Please click <Entered> for more info): Nutritional Asmnt/Malnutrition Start: 05/26/18 15: 45 Text: Status: Complete Freq: Protocol: Document 05/26/18 15:45 LCHENG (Rec: 05/26/18 15:49 [email or web address]) Nutritional Asmnt/Malnutrition Patient General Information Nutritional Screening High Risk Diagnosis FTT, dehydration Pertinent Medical Hx/Surgical Hx no H&P as of now Subjective Information Pt seen lying in bed at time of visit, awake and alert. Pt stated appetite is ok, no food preference. Current Diet Order/ Nutrition Support CCHO 45g, mech soft Pertinent Medications D5-0.45ns Pertinent Labs 05/26 reviewed Nutritional Hx/Data Height 1.52 m Height (Calculated Centimeters) 152.4 Current Weight (lbs) 58.967 kg Weight (Calculated Kilograms) 59.0 Weight (Calculated Grams) 57921.0 [place] Body Weight 100 Body Mass Index (BMI) 25.4 Weight Status Overweight GI Symptoms GI Symptoms None Last BM not indicated Difficult in: None Skin Integrity/Comment: intact Estimated Nutritional Goals BEE in Kcals: Using Current wt Calories/Kcals/Kg 23-27 Kcals Calculated 3640-6039 Protein: Using Current wt Protein g/k Protein Calculated 59 Fluid: ml 1357-1593ml (1ml/kcal) Nutritional Problem No current Nutrition Prob Problem N/A Malnutrition Alert Is there a minimum of two criteria No selected? Query Text:Check all the applicable criteria. A minimum of two criteria are recommended for diagnosis of either severe or non-severe malnutrition. Malnutrition Related to Morbid Obesity Malnutrition related to morbid obesity No Intervention/Recommendation Comments 1. Continue with CCHO 45gm mech soft diet as ordered. If PO intake low < 50%, consider adding nutrtiion supplements. 2. Monitor PO intake, wt, labs and skin integrity 3. F/U as high risk in 2-3 days Expected Outcomes/Goals Expected Outcomes/Goals 1. PO intake to meet at least 75% of nutritional needs. 2. Wt stability, skin to remain intact, labs to approach WNL.
== END 2018-05-30 16:45 | disposition home or self-care (01) | DRG 871 ==
LOC: ER 17:27 → MSI 22:55
PROVIDERS: ADMIT Internal Medicine; ATTEND Internal Medicine
DX: A41.2 Sepsis due to unspecified staphylococcus (principal); J18.9 Pneumonia, unspecified organism; N39.0 Urinary tract infection, site not specified; E86.0 Dehydration; R62.7 Adult failure to thrive; I34.0 Nonrheumatic mitral (valve) insufficiency; F03.90 Unspecified dementia, unspecified severity, without behavioral disturbance, psychotic disturbance, mood disturbance, and anxiety; R53.1 Weakness; R45.1 Restlessness and agitation; F79 Unspecified intellectual disabilities; F29 Unspecified psychosis not due to a substance or known physiological condition
CPT/HCPCS: 36415-UA; 71045-TC; 80048-TC; 80053-TC; 80061-TC; 80202-TC; 81001-TC; 82150-TC; 82550-TC; 83605; 83690-TC; 84484-TC; 85007-TC; 85025-TC; 85610-TC; 85730-TC; 87086-90; 87804-TC; 93005; 94760; 97530; J0696; J1200; J1630; J1956; J3370; J7030; J7040; J7121; X3904; Z7610